=== PATIENT | female | born 1960 | race Caucasian/White ===

== ENCOUNTER 2016-11-01 16:32 | Emergency (ER) | payer BC ==
[2016-11-01 17:37] VITALS: BP 112/72
--- NOTE | 2016-11-01 19:15 | UC ---
Abdominal Pain Female HPI - HPI Summary HPI Summary: 3 DAYS OF DIFFUSE ABDOMINAL PAIN AND LOW BACK PAIN. HAS SUBJECTIVE FEVER AND CHILLS. FEELS FATIGUED, BLOATED. NO COUGH, ST OR EAR PAIN. NO URINARY SX. - History of Current Complaint Chief Complaint: UCAbdominalPain Stated Complaint: ABDOMINAL PAIN, BACK PAIN, AND NAUSEA Time Seen by Provider: 11/01/16 18:15 Hx Obtained From: Patient Onset/Duration: Gradual Onset, Lasting Days, Still Present Timing: Constant Severity Initially: Moderate Severity Currently: Moderate Pain Intensity: 4 Pain Scale Used: 0-10 Numeric Location: Diffuse Radiates: Yes Radiates to: Back Character: Aching, Dull Aggravating Factor(s): Nothing Alleviating Factor(s): Nothing Associated Signs and Symptoms: Positive: Fever, Back Pain, Nausea. Negative: Constipation, Blood in Stool, Urinary Symptoms, Decreased Appetite, Vaginal Bleeding, Vaginal Discharge, Vomiting, Diarrhea Allergies/Adverse Reactions: Allergies Allergy/AdvReac Type Severity Reaction Status Date / Time Sulfa Drugs Allergy Mild Rash Verified 11/01/16 17:37 CARDIAC STRESS TEST DYE Allergy CHEST Uncoded 11/01/16 17:37 PAIN,INCREASED HR PMH/Surg Hx/FS Hx/Imm Hx - Additional Past Medical History Additional PMH: FACTOR V LEIDEN Endocrine History Of: Reports: Thyroid Disease - hypothyroid, Hypothyroidism Denies: Diabetes Cardiovascular History Of: Denies: Cardiac Disorders, Hypertension, Pacemaker/ICD Respiratory History Of: Denies: COPD, Asthma, Pneumonia, Pulmonary Embolism GI/ History Of: Denies: Ulcer, Gastrointestinal Bleed, Gall Bladder Disease, Renal Disease, Urosepsis Neurological History Of: Denies: TIA, Dementia, Seizures, Migraine Psychological History Of: Denies: Anxiety, Depression, Bipolar Disorder, Schizophrenia Cancer History Of: Denies: Lung Cancer, Breast Cancer - Surgical History Surgical History: Yes Surgery Procedure, Year, and Place: cholecystectomy, hysterectomy, x3 - Family History Known Family History: Positive: Hypertension Family History: FACTOR V LEIDEN, DVT - Social History Alcohol Use: None Substance Use Type: None Smoking Status (MU): Never Smoked Tobacco - Immunization History Most Recent Influenza Vaccination: 2014/2015 Review of Systems Constitutional: Fever, Chills, Fatigue Respiratory: Negative Cardiovascular: Negative Gastrointestinal: Abdominal Pain, Other - NAUSEA Genitourinary: Negative Musculoskeletal: Other: - LOW BACK PAIN All Other Systems Reviewed And Are Negative: Yes Physical Exam Triage Information Reviewed: Yes Appearance: Well-Appearing, No Pain Distress, Well-Nourished Vital Signs: Initial Vital Signs Temp 98.5 F 11/01/16 17:32 Pulse 78 11/01/16 17:32 Resp 20 11/01/16 17:32 BP 112/72 11/01/16 17:32 Pulse Ox 100 11/01/16 17:32 Vital Signs Reviewed: Yes Eyes: Positive: Conjunctiva Clear ENT: Positive: Hearing grossly normal, Pharynx normal, TMs normal Neck: Positive: Supple, Nontender, No Lymphadenopathy Respiratory Exam: Normal Cardiovascular Exam: Normal Abdomen Description: Positive: Soft, Distended - MILDLY, Guarding - VOLUNTARY, Other: - TTP DIFFUSELY. NEG PSOAS, NEG OBTURATOR. NO REBOUND OR RIGIDITY. Negative: CVA Tenderness (R), CVA Tenderness (L) Bowel Sounds: Positive: Present Musculoskeletal: Positive: No Edema Neurological: Positive: Alert Psychological: Positive: Age Appropriate Behavior Skin: Negative: rashes Diagnostics - Laboratory Diagnostic Studies Completed/Ordered: URINE DOP SP. GR. 1.015, 1+LEUKS Abd Pain Female Course/Dx - Differential Dx/Diagnosis Differential Diagnosis: Appendicitis, Constipation, Pancreatitis, Urinary Tract Infection, Other - VIRAL SYNDROME Provider Diagnoses: ACUTE ABD PAIN, NOS Discharge - Discharge Plan Condition: Stable Disposition: HOME Patient Education Materials: Viral Syndrome (ED), Abdominal Pain (ED) Referrals: Lore Flores PA [Primary Care Provider] - If Needed Additional Instructions: ABDOMINAL PAIN: There are many causes of abdominal pain. Pain can mean a serious problem requiring surgery (such as appendicitis), or an innocent problem which goes away on its own (such as a viral infection). Often, time must pass to determine the cause of pain. The physician does not feel that hospitalization is necessary, at present. Conditions may change, however, within the next 24 hours. Therefore, call the doctor or come back for re-examination if any problems occur, such as: 1) Pain which becomes more severe, steady, or becomes concentrated in one specific area. Also, pain which is more severe with movement or coughing. 2) Vomiting which persists or becomes more frequent. 3) Blood in the vomitus, urine, or bowel movements. Blood in the stool may have a tarry or black appearance. 4) Shaking chills or fever greater than 100 degrees F. 5) The abdomen becomes more distended or swollen. 6) Bowel movements cease. 7) Failure to improve as expected. OBSERVATION FOR APPENDICITIS: At this time, the abdominal pain does not seem to be appendicitis. Our next "test" will be passage of time. If you have early appendicitis, signs will appear to help us make the diagnosis. Most of the time, the pain goes away. In these cases, the pain is usually due to a virus in the lymph glands near the appendix, or due to an ovarian cyst or ovulation. Unless the pain is gone, you should come back for a recheck. This is usually done in 8 to 12 hours. Be sure you understand your follow-up instructions. GO TO THE ER IMMEDIATELY IF: (1) the pain becomes much more severe and sharply increases with movement or coughing, (2) vomiting becomes frequent, (3) there is blood in the vomit, urine, or bowel movements, (4) there are shaking chills or fever, or (5) the abdomen becomes more distended or swollen. VIRAL SYNDROME: The physician has diagnosed a viral infection. Viruses not only cause "colds," but can cause many different symptoms including generalized aching, fever, headache, cough, diarrhea, nausea, vomiting, and fatigue. The treatment, for the most part, is simply relief of symptoms. This means that antibiotics are usually not given. Rest, fluids, pain medications and, occasionally, medication for the specific symptoms that are most bothersome will be prescribed. Contact the physician if you develop any new or unusual symptoms such as severe headache, stiff neck, high fever, chest pain, productive cough, or shortness of breath. You should be rechecked if you don't see marked improvement within seven to 10 days. GO TO THE ER WITHOUT FAIL IF YOUR SYMPTOMS WORSEN. OTHERWISE FOLLOW-UP WITH YOUR PCP FOR AN OUTPATIENT EVALUATION IF YOUR SYMPTOMS ARE PERSISTENT.
== END 2016-11-01 18:49 | disposition home or self-care (01) ==
LOC: UCEAST 16:32
DX: R10.0 Acute abdomen (principal); M54.5 Low back pain; Z88.2 Allergy status to sulfonamides; Z90.49 Acquired absence of other specified parts of digestive tract
CPT/HCPCS: 87086; 99211; G0463

== ENCOUNTER 2017-10-09 19:37 | Emergency (ER) | payer BC ==
[2017-10-10 00:19] VITALS: BP 125/79
--- NOTE | 2017-10-10 00:55 | ED ---
Lower Extremity - HPI Summary HPI Summary: Patient is a 57-year-old female with a history of factor V Leiden who presents [facility] the ED from [facility] with a chief complaint of left lateral calf swelling and tenderness which radiates up to the lateral thigh which has been present for approximately 4 days. She endorses working out more frequently, but states since she came down with the flu last week she has not been working out regularly. Due to her condition she makes sure she is ambulating once per hour. Denies any recent travel, smoking, or oral contraceptive use. She does not have a history of muscle strains or pains, but has bilateral varicose veins. Denies any chest pain, shortness of breath, fevers, sweats, chills. She has since improved from the influenza. She denies any weakness, numbness, tingling, color or temperature changes to the area. - History of Current Complaint Chief Complaint: EDExtremityLower Stated Complaint: POSS BLOOD CLOT IN LT LEG Time Seen by Provider: 10/09/17 22:20 Hx Obtained From: Patient Onset of Pain: Days Onset/Duration: Days Severity Initially: Mild Severity Currently: Mild Pain Intensity: 1 Pain Scale Used: 0-10 Numeric Timing: Constant Location: Is Discrete @ - Left lateral lower leg Character Of Pain: Aching Associated Signs And Symptoms: Negative: Swelling, Redness, Bruising, Fever, Weakness, Dizziness, Syncope, Abdominal Pain, Knee Pain Aggravating Factor(s): Standing, Ambulation Alleviating Factor(s): Rest Able to Bear Weight: Yes - Risk Factors Gout Risk Factors: Negative DVT Risk Factors: Other: - Factor V Leiden deficiency Septic Arthritis Risk Factor: Negative - Allergies/Home Medications Allergies/Adverse Reactions: Allergies Allergy/AdvReac Type Severity Reaction Status Date / Time Sulfa (Sulfonamide Allergy Rash Verified 10/09/17 19:41 Antibiotics) CARDIAC STRESS TEST DYE Allergy CHEST Uncoded 11/01/16 17:37 PAIN,INCREASED HR PMH/Surg Hx/FS Hx/Imm Hx Previously Healthy: Yes Endocrine/Hematology History: Reports: Hx Thyroid Disease - hypothyroid Denies: Hx Diabetes, Hx Anemia Cardiovascular History: Denies: Hx Hypertension, Hx Pacemaker/ICD Respiratory History: Denies: Hx Asthma, Hx Bronchopulmonary Dysplasia, Hx Chronic Bronchitis, Hx Chronic Obstructive Pulmonary Disease (COPD), Hx Cystic Fibrosis, Hx Lung Cancer , Hx Pleural Effusion, Hx Pneumonia, Hx Pulmonary Edema, Hx Pulmonary Embolism, Hx Seasonal Allergies, Hx Sleep Apnea, Other Respiratory Problems/Disorders GI History: Denies: Hx Cirrhosis, Hx Crohn's Disease, Hx Diverticulosis, Hx Gall Bladder Disease, Hx Gastroesophageal Reflux Disease, Hx Gastrointestinal Bleed, Hx Hiatal Hernia, Hx Irritable Bowel, Hx Jaundice, Hx Obstructive Bowel, Hx Ileostomy, Hx Pyloric Stenosis, Hx Ulcer, Hx Urosepsis, Other GI Disorders History: Denies: Hx Renal Disease Musculoskeletal History: Denies: Hx Arthritis, Hx Rheumatoid Arthritis, Hx Back Problems, Hx Bursitis , Hx Congenital Bone Abnormalities, Hx Fibromyalgia, Hx Gout, Hx Orthopedic Injury, Hx Osteoporosis, Hx Scoliosis, Hx Tendonitis, Other Musculoskeletal History Sensory History: Denies: Hx Hearing Aid Neurological History: Denies: Hx CVA, Hx Dementia, Hx Developmental Delay, Hx Headaches, Hx Migraine, Hx Nerve Disease, Hx Peripheral Neuropathy, Hx Seizures, Hx Spinal Cord Injury, Hx Transient Ischemic Attacks (TIA), Other Neuro Impairments/ Disorders Psychiatric History: Denies: Hx Anxiety, Hx Attention Deficit Hyperactivity Disorder, Hx Autism, Hx Eating Disorder, Hx Oppositional [place] Disorder, Hx Depression, Hx Panic Disorder, Hx Post Traumatic Stress Disorder, Hx Inpatient Treatment, Hx Community Mental Health Tx, Hx Schizophrenia, Hx Bipolar Disorder, Hx Suicide Attempt, Hx of Violent Episodes Against Others, Hx Substance Abuse, Other Psychiatric Issues/Disorders - Cancer History Hx Chemotherapy: No Hx Radiation Therapy: No - Surgical History Surgery Procedure, Year, and Place: cholecystectomy, hysterectomy, x3 - Immunization History Date of Tetanus Vaccine: Unk Date of Influenza Vaccine: Fall 2014 Hx Pertussis Vaccination: No Immunizations Up to Date: Unable to Obtain/Confirm Infectious Disease History: No Infectious Disease History: Denies: Hx Hepatitis, Hx Human Immunodeficiency Virus (HIV), History Other Infectious Disease, Traveled Outside the [place] in Last 30 Days - Family History Known Family History: Positive: Hypertension Family History: FACTOR V LEIDEN, DVT - Social History Occupation: Employed Full-time Lives: With Family Alcohol Use: None Hx Substance Use: No Substance Use Type: Reports: None Hx Tobacco Use: No Smoking Status (MU): Never Smoked Tobacco Review of Systems Constitutional: Negative Negative: Fever, Chills, Fatigue, Skin Diaphoresis Eyes: Negative Cardiovascular: Negative Respiratory: Negative Positive: Abdominal Pain Positive: no symptoms reported, see HPI Positive: Myalgia Negative: Rash, Bruising Neurological: Negative All Other Systems Reviewed And Are Negative: Yes Physical Exam Triage Information Reviewed: Yes Vital Signs On Initial Exam: Initial Vitals Temp Pulse Resp BP Pulse Ox 98.1 F 81 20 126/70 98 10/09/17 19:39 10/09/17 19:39 10/09/17 19:39 10/09/17 19:39 10/09/17 19:39 Vital Signs Reviewed: Yes Appearance: Positive: Well-Appearing, Well-Nourished Skin: Positive: Warm, Skin Color Reflects Adequate Perfusion Head/Face: Positive: Normal Head/Face Inspection Eyes: Positive: EOMI, HERIBERTO, Conjunctiva Clear Respiratory/Lung Sounds: Positive: Clear to Auscultation, Breath Sounds Present Cardiovascular: Positive: Normal, RRR, Pulses are Symmetrical in both Upper and Lower Extremities Musculoskeletal: Positive: Normal, Strength/ROM Intact Neurological: Positive: Speech Normal Psychiatric: Positive: Normal, Affect/Mood Appropriate Diagnostics - Vital Signs Vital Signs Temp Pulse Resp BP Pulse Ox 10/10/17 00:18 97.6 F 68 16 125/79 96 10/09/17 19:39 98.1 F 81 20 126/70 98 - Laboratory Lab Statement: Any lab studies that have been ordered have been reviewed, and results considered in the medical decision making process. Lower Extremity Course/Dx - Course Course Of Treatment: During the course of treatment the patient is evaluated for left lower extremity DVT versus other pathology. 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 Discussed with patient the possibilities for her muscle pain. I did not observe there to be any significant swelling, erythema, or warmth indicating a DVT or superficial thrombophlebitis. There does not seem to be any thrombosis from her varicose veins. I have advised she take magnesium glycinate 400 mg at bedtime for any tightening symptoms to which she has been feeling for the last several days. She is also to use a moist heat pad to the leg for any tightness. She will follow-up with her primary care doctor and Dr. Soliz who follows her for factor V Leiden. She is okay with plan to discharge and voices no concerns at this time. - Diagnoses Differential Diagnosis/HQI/PQRI: Positive: Other - DVT, superficial thrombophlebitis, thrombosis, varicose veins, muscle strain, muscle pain, restless leg Provider Diagnoses: Cramps of left lower extremity Discharge - Discharge Plan Condition: Stable Disposition: HOME Patient Education Materials: Leg Cramps (ED) Referrals: Ruba Walker NP [Primary Care Provider] - Additional Instructions: Magnesium glycinate 400 mg once daily at bedtime This helps with any restless leg or muscle spasms Moist heat to the calf if you feel it tightening Ibuprofen 6 her milligrams 3 times daily Try to avoid overuse of the leg at this time Please follow-up with your doctor as soon as possible
--- NOTE | 2017-10-10 07:22 | RAD ---
HISTORY: Leg pain COMPARISONS: December 14, 2016 TECHNIQUE: Multiple transverse and longitudinal ultrasound images were obtained of the left lower extremity from the level of the common femoral vein inferiorly through to the infrapopliteal veins using grayscale, color Doppler, and spectral Doppler imaging with and without compression and with augmentation. Comparison images were obtained of the contralateral common femoral vein. FINDINGS: VEINS: The venous system of the left lower extremity is compressible throughout its course, with normal flow on color Doppler imaging and normal response to augmentation on spectral Doppler imaging. SOFT TISSUES: Unremarkable. OTHER FINDINGS: None. IMPRESSION: NO LEFT LOWER EXTREMITY DEEP VEIN THROMBOSIS
== END 2017-10-10 00:19 | disposition home or self-care (01) ==
LOC: ED 19:37
DX: R25.2 Cramp and spasm (principal)
CPT/HCPCS: 99282

== ENCOUNTER 2017-12-11 11:29 | Emergency (ER) | payer BC ==
[2017-12-11 11:37] VITALS: BP 143/84
--- NOTE | 2017-12-11 12:29 | RAD ---
Indication: Right leg edema. Duplex Doppler sonography of the deep venous system of the right lower extremity deep venous system was performed. Bilaterally the common femoral veins appear patent and compressible. Right proximal greater saphenous vein, proximal deep femoral vein, femoral vein, popliteal vein, posterior tibial veins and peroneal veins appear patent and compressible. IMPRESSION: NO EVIDENCE OF DEEP VENOUS THROMBOSIS IS IDENTIFIED.
--- NOTE | 2017-12-11 17:15 | ED ---
Lower Extremity - HPI Summary HPI Summary: Patient is a 57-year-old female who presents emergency department for right Upper Leg Pain Times Several Days. Patient Does Not Recall Any Specific Falls or Injuries. Patient States the Pain Is Becoming More Constant. She Is Concerned Because She Is a History of Factor V Leiden. She States She Has Had a "Small" Clot in the past. She Denies Chest Pain or Shortness of Breath. Pain Is Worse with Ambulation. Has Taken Approximately No More Relief of Pain. Symptoms Are Mild in Severity. - History of Current Complaint Chief Complaint: EDExtremityLower Stated Complaint: RT CALF PAIN Time Seen by Provider: 12/11/17 13:26 Hx Obtained From: Patient Pain Intensity: 2 Pain Scale Used: 0-10 Numeric - Allergies/Home Medications Allergies/Adverse Reactions: Allergies Allergy/AdvReac Type Severity Reaction Status Date / Time Sulfa (Sulfonamide Allergy Rash Verified 12/11/17 11:37 Antibiotics) CARDIAC STRESS TEST DYE Allergy CHEST Uncoded 12/11/17 11:37 PAIN,INCREASED HR Home Medications: Home Medications Levothyroxine TAB* [Synthroid TAB*] 50 mcg PO DAILY 12/11/17 [History Confirmed 12/11/17] PMH/Surg Hx/FS Hx/Imm Hx Previously Healthy: Yes Endocrine/Hematology History: Reports: Hx Thyroid Disease - hypothyroid Denies: Hx Diabetes, Hx Anemia Cardiovascular History: Denies: Hx Hypertension, Hx Pacemaker/ICD Respiratory History: Denies: Hx Asthma, Hx Bronchopulmonary Dysplasia, Hx Chronic Bronchitis, Hx Chronic Obstructive Pulmonary Disease (COPD), Hx Cystic Fibrosis, Hx Lung Cancer , Hx Pleural Effusion, Hx Pneumonia, Hx Pulmonary Edema, Hx Pulmonary Embolism, Hx Seasonal Allergies, Hx Sleep Apnea, Other Respiratory Problems/Disorders GI History: Denies: Hx Cirrhosis, Hx Crohn's Disease, Hx Diverticulosis, Hx Gall Bladder Disease, Hx Gastroesophageal Reflux Disease, Hx Gastrointestinal Bleed, Hx Hiatal Hernia, Hx Irritable Bowel, Hx Jaundice, Hx Obstructive Bowel, Hx Ileostomy, Hx Pyloric Stenosis, Hx Ulcer, Hx Urosepsis, Other GI Disorders History: Denies: Hx Renal Disease Musculoskeletal History: Denies: Hx Arthritis, Hx Rheumatoid Arthritis, Hx Back Problems, Hx Bursitis , Hx Congenital Bone Abnormalities, Hx Fibromyalgia, Hx Gout, Hx Orthopedic Injury, Hx Osteoporosis, Hx Scoliosis, Hx Tendonitis, Other Musculoskeletal History Sensory History: Denies: Hx Hearing Aid Neurological History: Denies: Hx CVA, Hx Dementia, Hx Developmental Delay, Hx Headaches, Hx Migraine, Hx Nerve Disease, Hx Peripheral Neuropathy, Hx Seizures, Hx Spinal Cord Injury, Hx Transient Ischemic Attacks (TIA), Other Neuro Impairments/ Disorders Psychiatric History: Denies: Hx Anxiety, Hx Attention Deficit Hyperactivity Disorder, Hx Autism, Hx Eating Disorder, Hx Oppositional [place] Disorder, Hx Depression, Hx Panic Disorder, Hx Post Traumatic Stress Disorder, Hx Inpatient Treatment, Hx Community Mental Health Tx, Hx Schizophrenia, Hx Bipolar Disorder, Hx Suicide Attempt, Hx of Violent Episodes Against Others, Hx Substance Abuse, Other Psychiatric Issues/Disorders - Cancer History Hx Chemotherapy: No Hx Radiation Therapy: No - Surgical History Surgery Procedure, Year, and Place: cholecystectomy, hysterectomy, x3 - Immunization History Date of Tetanus Vaccine: Unk Date of Influenza Vaccine: Fall 2014 Infectious Disease History: No Infectious Disease History: Denies: Hx Hepatitis, Hx Human Immunodeficiency Virus (HIV), History Other Infectious Disease, Traveled Outside the [place] in Last 30 Days - Family History Known Family History: Positive: Hypertension Family History: FACTOR V LEIDEN, DVT - Social History Occupation: Employed Full-time Alcohol Use: None Hx Substance Use: No Substance Use Type: Reports: None Hx Tobacco Use: No Smoking Status (MU): Never Smoked Tobacco Review of Systems Constitutional: Negative Respiratory: Negative Gastrointestinal: Negative Positive: Other - pain to right calf and posterior thigh. Positive: Headache. Negative: Weakness, Paresthesia, Numbness All Other Systems Reviewed And Are Negative: Yes Physical Exam Triage Information Reviewed: Yes Vital Signs On Initial Exam: Initial Vitals Temp Pulse Resp BP Pulse Ox 98.0 F 67 15 143/84 100 12/11/17 11:34 12/11/17 11:34 12/11/17 11:34 12/11/17 11:34 12/11/17 11:34 Vital Signs Reviewed: Yes Appearance: Positive: Well-Appearing - Patient sitting outside of it no acute distress. Pleasant. Head/Face: Positive: Normal Head/Face Inspection Eyes: Positive: Normal Musculoskeletal: Positive: Normal, Other - Good palpable pedal pulse. Varicose veins noted. Mild pain to the right calf and brandt with flexion foot. No erythema, wounds, pitting edema. Neurological: Positive: Normal, CN Intact II-III Diagnostics - Vital Signs Vital Signs Temp Pulse Resp BP Pulse Ox 12/11/17 11:34 98.0 F 67 15 143/84 100 - Laboratory Lab Statement: Any lab studies that have been ordered have been reviewed, and results considered in the medical decision making process. Lower Extremity Course/Dx - Course Course Of Treatment: Patient presenting to the ER for right posterior leg pain. Venous duplex is negative for DVT or acute findings, reading per radiology. Suspect muscle strain. Advised Tylenol or Motrin for discomfort. To ice and elevate. Follow-up with PCP. Patient understands and agrees with plan. - Diagnoses Differential Diagnosis/HQI/PQRI: Positive: DVT, Sciatica, Sprain, Strain Provider Diagnoses: Muscle strain Discharge - Sign-Out/Discharge Documenting (check all that apply): Discharge/Admit/Transfer - Discharge Plan Condition: Good Disposition: HOME Patient Education Materials: Muscle Strain (ED) Referrals: Ruba Walker NP [Primary Care Provider] - Additional Instructions: Follow up with your PCP Tylenol or Motrin for pain as directed Ice and elevate Return to ER if symptoms change or worsen - Billing Disposition and Condition Condition: GOOD Disposition: HOME
== END 2017-12-11 13:55 | disposition home or self-care (01) ==
LOC: ED 11:29
DX: S76.911A Strain of unspecified muscles, fascia and tendons at thigh level, right thigh, initial encounter (principal); X58.XXXA Exposure to other specified factors, initial encounter; Y92.9 Unspecified place or not applicable; Z88.2 Allergy status to sulfonamides
CPT/HCPCS: 99282

== ENCOUNTER 2018-01-25 09:15 | Inpatient (IN) | payer BC ==
--- NOTE | 2018-01-22 07:07 | HP ---
HISTORY AND PHYSICAL: DATE OF SURGERY: 02/22/18 DATE OF OFFICE VISIT: 01/17/18 SURGEON: Ema Kay MD * (DICTATED BY KRAIG AHUJA) PROCEDURE: Right total knee arthroplasty CHIEF COMPLAINT: Right knee pain. HISTORY OF PRESENT ILLNESS: Ms. Grey is a 57-year-old female with continued complaints of right knee pain. She has failed conservative management and elected to proceed with a right knee arthroplasty. Radiographs show advanced arthritic changes of her medial and patellofemoral compartments. . PAST MEDICAL HISTORY: 1. Factor V Leiden disorder. 2. Hypothyroidism. PAST SURGICAL HISTORY: 1. x3. 2. Cholecystectomy. 3. Hysterectomy. 4. Vein ablation, right lower extremity. CURRENT MEDICATIONS: 1. Zoloft 25 mg daily. 2. Aspirin 81 mg daily. 3. Levothyroxine 50 mcg daily. ALLERGIES: To SULFA, CONTRAST DYE, and AMOXICILLIN. FAMILY HISTORY: Coronary artery disease, hypertension, factor V Leiden. SOCIAL HISTORY: She is a 57-year-old female, she lives with her . She does not smoke, use drugs or alcohol. REVIEW OF SYSTEMS: A complete 14-point review of systems is reviewed with the patient. Review of systems is positive for hypothyroidism, factor V Leiden disorder. She denies history of hepatitis, HIV, or anesthesia problems. PHYSICAL EXAMINATION GENERAL: She is a well developed, well nourished, in no acute distress. VITAL SIGNS: She stands 64 inches tall, weighs 187 pounds. Her blood pressure is 126/84, heart rate 76. HEENT: Normocephalic, atraumatic. NECK: Supple. No palpable lymph nodes. PULMONARY: The lungs are clear to auscultation bilaterally. CARDIO: Regular rate and rhythm. Strong S1, S2. ABDOMEN: Soft, nontender, nondistended. NEUROLOGICAL: She is alert and oriented x3. Cranial nerves II through XII are intact. MUSCULOSKELETAL: Right lower extremity, the skin is intact. There are no open wounds or abrasions. There is a mild to moderate joint effusion. She has some tenderness over the medial joint line. She has positive Christine's. 2+ dorsalis pedis pulses. She has intact sensation in her lower extremities. Muscle group strengths are intact at 5/5. Range of motion at the knee is 5-125 with pain and patellofemoral crepitus. ASSESSMENT AND PLAN: Ms. Grey is a 57-year-old female with complaints of right knee pain and MRI confirms a medial meniscus tear as well as full thickness loss of cartilage in the medial and patellofemoral compartments. She has elected to proceed with right total knee arthroplasty. Her surgery is scheduled for 02/22/[address] Kay discussed the risks and benefits of the surgery at today's visit and all of her questions were answered. Due to her history of factor V Leiden disorder, postoperatively she will be placed on coumadin with a lovenox bridge. She will follow up with Dr. Kay 2 weeks after the surgery. KRAIG AHUJA [id number]/[facility] #: [id number] MTDVenice
--- NOTE | 2018-01-23 10:12 | HP ---
AMENDED REPORT NOW INCLUDES COSIGNER DESIGNATION HISTORY AND PHYSICAL: DATE OF SURGERY: 02/22/18 DATE OF OFFICE VISIT: 01/17/18 SURGEON: Ema Kay MD.* (DICTATED BY KRAIG AHUJA) PROCEDURE: Right total knee arthroplasty. CHIEF COMPLAINT: Right knee pain. HISTORY OF PRESENT ILLNESS: Ms. Grey is a 57-year-old female with continued complaints of right knee pain. She has failed conservative management and elected to proceed with a right total knee arthroplasty, which is scheduled in February with Dr. Kay. PAST MEDICAL HISTORY: 1. Factor V Leiden disorder. 2. Hypothyroidism. PAST SURGICAL HISTORY: 1. x3. 2. Cholecystectomy. 3. Hysterectomy. 4. Vein ablation, right lower extremity. CURRENT MEDICATIONS: 1. Zoloft 25 mg daily. 2. Aspirin 81 mg daily. 3. Levothyroxine 50 mcg daily. ALLERGIES: SULFA, CONTRAST DYE, and AMOXICILLIN. FAMILY HISTORY: Coronary artery disease, hypertension, factor V Leiden. SOCIAL HISTORY: She is a 57-year-old female. She lives with her . She does not smoke, use drugs or alcohol. REVIEW OF SYSTEMS: A complete 14-point review of systems was reviewed with the patient. It was positive for hypothyroidism and factor V Leiden disorder. She denies history of DVT, PE, hepatitis, or HIV. PHYSICAL EXAMINATION GENERAL: She is well developed, well nourished, in no acute distress. VITAL SIGNS: She stands 5 feet 4 inches tall, weighs 187 pounds. Her blood pressure is 126/84 and heart rate is 76. HEENT: Normocephalic, atraumatic. NECK: Supple. No palpable lymph nodes. PULMONARY: The lungs are clear to auscultation bilaterally. CARDIO: Regular rate and rhythm. Strong S1 and S2. ABDOMEN: Soft, nontender, and nondistended. MUSCULOSKELETAL: Right lower extremity, the skin is intact. There are no open wounds or abrasions. She has a moderate joint effusion. There is some tenderness over the medial and lateral joint line. Positive Christine. 5 to 125 degrees of flexion with patellofemoral crepitus. 2+ dorsalis pedis pulses. Intact sensation in her lower extremity. Muscle group strengths are intact at 5/5. ASSESSMENT AND PLAN: Ms. Grey is a 57-year-old female with advanced arthritis of her right knee. She has failed conservative management and elected to proceed with a right total knee arthroplasty, which is scheduled for [address] Kay discussed the risks and benefits of the surgery on today's visit and all of her questions were answered. She will follow up with Dr. Kay in 2 weeks after the surgery. KRAIG AHUJA [id number]/[facility] #: [id number] MTDD
--- NOTE | 2018-11-27 18:06 | HP ---
HISTORY AND PHYSICAL: DATE OF ADMISSION/SURGERY: 12/06/18 DATE OF OFFICE VISIT: 11/26/18 SURGEON: Ema Kay MD * (DICTATED BY KRAIG AHUJA) PROCEDURE: Left total knee arthroplasty. CHIEF COMPLAINT: Left knee pain. HISTORY OF PRESENT ILLNESS: Ms. Grey is a 58-year-old female with continued complaints of left knee pain. She has failed conservative treatment and elected to proceed with a left total knee arthroplasty. PAST MEDICAL HISTORY: Hypothyroidism, factor V Leiden disorder, and history of a DVT. PAST SURGICAL HISTORY: x3, cholecystectomy, and hysterectomy. CURRENT MEDICATIONS: 1. Levothyroxine 50 mcg a day. 2. Zoloft 25 mg daily. 3. Furosemide 20 mg a day. 4. Tylenol as needed. ALLERGIES: To SULFA ANTIBIOTICS, IV DYE, AMOXICILLIN, and ADHESIVE TAPE. FAMILY HISTORY: Factor V Leiden and coronary artery disease. SOCIAL HISTORY: She is a 58-year-old female. She lives with her . She does not smoke or use drugs. Uses occasional alcohol. REVIEW OF SYSTEMS: A complete 14-point review of systems was reviewed with the patient. It was positive for history of a DVT and factor V Leiden disorder as well as hypothyroidism. She denies history of anesthesia problems, hepatitis, or HIV. PHYSICAL EXAMINATION GENERAL: She is well developed, well nourished, in no acute distress. VITAL SIGNS: She stands 64 inches tall, weighs 190 pounds. Her blood pressure is 140/90, heart rate 76. HEENT: Normocephalic, atraumatic. NECK: Supple. No palpable lymph nodes. PULMONARY: The lungs are clear to auscultation bilaterally. CARDIO: Regular rate and rhythm. Strong S1, S2. ABDOMEN: Soft, nontender, nondistended. NEUROLOGICAL: She is alert and oriented x3. MUSCULOSKELETAL: Left lower extremity, the skin is intact. There are no open wounds or abrasions. There is [id number] effusion of the left knee. She has some tenderness along the medial and lateral joint line. Range of motion is 10 to 150 degrees of flexion. She has 2+ dorsalis pedis pulse. Intact sensation. She is able to dorsiflex and plantar flex. ASSESSMENT AND PLAN: Ms. Grey is a 58-year-old female with end-stage osteoarthritis of the left knee. She has failed conservative treatment and elected to proceed with a left total knee arthroplasty. The surgery is scheduled for 12/06/[address] Kay discussed the risks and benefits of the surgery at today's visit and all of her questions were answered. She will follow up with Dr. Kay 2 weeks after the surgery. No TXA will be used on this patient because of her history of DVT and factor V Leiden disorder. KRAIG AHUJA [id number]/[facility] #: [id number] [place]TD[place]
[2018-12-05] MEDS ORDERED: Buffered Lidocaine 1% SYRIN* 1 ML/SYRINGE INTRADERM ONE (11:49)
[2018-12-06] MEDS ORDERED: Lactated Ringers 1000 ML Bag* 1,000 ML IV SCH (06:00)
--- OUTSIDE RECORDS SUMMARY | 2018-12-06 10:11 | XMS REPORT | Continuity of Care Document ---
:1960 External Reference #:[id number] Author Name Faye Hatfield Care Team Providers Name Role Phone Jakob Johnson MD Primary Care Physician Unavailable Payers Date Identification Numbers Payment Provider Subscriber Effective: 2015 Policy Number: [id number] [employer] Radha Grey PayID: [id number] [address] [address] KAYLYNN Smith [address] Effective: 2013 Policy Number: [id number] [place] Radha Grey Expires: 2015 Group Name: [facility] [address] PayID: [id number] [place] [address] Effective: 2011 Policy Number: [id number] [employer] Radha Grey Expires: 2013 PayID: [id number] [address] [address] KAYLYNN Smith [address] Advance Directives Description No Information Available Problems [...] History Type Date Description Comments Sex Unknown Marital Status Lives With Family 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 ETOH Use Drinks Alcoholic Beverages Occasionally Tobacco Use Start: Unknown Patient has never smoked Recreational Drug Use Denies Drug Use Smoking Status Reviewed: 11/26/18 Patient has never smoked Exercise Type/Frequency Exercises sporadically housework Allergies, Adverse Reactions, Alerts Date Description Reaction Status Severity Comments 09/10/2013 Sulfa Antibiotics Urticaria Active 10/10/2016 IVP Dye Active 10/10/2016 Amoxicillin Contact dermatitis Active 10/10/2016 Adhesive Tape rash Active Medications Medication Date Status Form Strength Qnty SIG Indications Ordering Provider Levothyroxine Active Tablets 50mcg 90tab 1 po qd Unknown Sodium 00 s Zoloft Active Tablets 25mg 1 by Unknown 00 mouth every day Acetaminophen Active Tablets 325mg 2 every 4 Unknown 00 hours as needed for pain Lovenox 01/18/20 Hx Solution 40mg/0.4M 12ml sub [...] by 719.49 Anand GARCIA 14 - [facility], 06/23/20 twice a M.D. 15 [...] 00 - mouth 10/22/19 every day 16 Aspir-81 Hx Tablets 81mg 1 by Unknown 00 - DR mouth 11/24/19 every day 19 Zyrtec Allergy Hx Tablets 10mg 1 by Unknown 00 - mouth 01/17/20 every day 18 Naprosyn Hx Tablets 500mg take 1 by Unknown 00 - mouth 01/17/20 twice a 18 day Maxalt Hx Tablets 5mg take 1 Unknown 00 - tablet Unknown once, may repeat at 2hr intervals ; do not exceed 30mg in 24 hrs. Furosemide Hx Tablets 20mg 1 by Unknown 00 - mouth 09/18/19 every day 19 Meloxicam Hx Tablets 15mg 1 by Unknown 00 - mouth 11/24/19 every day 19 Medications Administered in Office Medication Date Status Form Strength Qnty SIG Indications Ordering Provider Synvisc Or Administered Injection Ema Synvisc-Manuela Kay M.D. Injection 1 MG Synvisc Or Administered Injection Ema Synvisc-Manuela Kay M.D. Injection 1 MG Depomedrol Administered Injection Ema 40MG Siria Kay M.D. Depomedrol Administered Injection Ema 40MG Siria Kay M.D. Depomedrol Administered Injection Ema 40MG Mu Kay M.D. Immunizations Description No Information Available Vital Signs Date Vital Result Comment 11/26/2018 10:10am Height 64 inches 5'4" Weight 190.75 lb Heart Rate 76 /min BP Systolic 140 mmHg BP Diastolic 90 mmHg Respiratory Rate 16 /min Pain Level 2 BMI (Body Mass Index) 32.7 kg/m2 11/22/2018 12:54pm Height 64 inches 5'4" Weight 189.00 lb Heart Rate 72 /min BP Systolic Sitting 132 mmHg lue large cuff BP Diastolic Sitting 80 mmHg lue large cuff BP Systolic Standing 128 mmHg lue large cuff BP Diastolic Standing 80 mmHg lue large cuff Respiratory Rate 16 /min BMI (Body Mass Index) 32.4 kg/m2 Ejection Fraction 50-55% echo. 09/06/18 11/05/2018 7:59am Height 64 inches 5'4" Weight 186.00 lb BP Systolic 124 mmHg BP Diastolic 74 mmHg Body Temperature 98.1 F Pain Level 3 BMI (Body Mass Index) 31.9 kg/m2 10/29/2018 2:26pm Height 64 inches 5'4" Weight 184.00 lb BP Systolic 124 mmHg BP Diastolic 83 mmHg Respiratory Rate 17 /min Pain Level 4 BMI (Body Mass Index) 31.6 kg/m2 10/09/2018 8:52am Height 64 inches 5'4" Weight 188.00 lb w/o shoes Heart Rate 64 /min BP Systolic 135 mmHg Lue BP Diastolic 90 mmHg Lue BP Systolic Sitting 130 mmHg Rue BP Diastolic Sitting 95 mmHg Rue BP Systolic Standing 125 mmHg Rue BP Diastolic Standing 95 mmHg Rue Respiratory Rate 17 /min BMI (Body Mass Index) 32.3 kg/m2 Ejection Fraction 50-55% 09/06/18 echo cmc 10/05/2018 3:15pm Height 64 inches 5'4" Weight 185.00 lb BP Systolic 119 mmHg BP Diastolic 74 mmHg Respiratory Rate 15 /min Pain Level 6 BMI (Body Mass Index) 31.8 kg/m2 09/19/2018 9:07am Height 64 inches 5'4" Weight [...] test for the detection of antibodies 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 3 -- REFERENCE VALUE -- Not Applicable 4 RESULT: HLA-B27 antigen was not detected. Method: Flow Cytometry Test Performed by: [place] [address] Supervisor Dock: Joe Joseph III, M.D. 5 Test Performed by: [place] [address] Supervisor Dock: Joe Joseph III, M.D. 6 -- REFERENCE VALUE -- <20.0 (Negative) Test Performed by: [place] [address] Supervisor Dock: Joe Joseph III, M.D. 7 -- REFERENCE VALUE -- 10.3 - 12.8 8 No evidence of a lupus-like anticoagulant based on results of Prothrombin Time (PT), Activated Partial Thromboplastin Time (APTT), and Dilute Russells Viper Venom Time (DRVVT). Interpretation not reviewed by physician. Test Performed by: [place] [address] Supervisor Dock: Joe Joseph III, M.D. 9 If thyroglobulin [...] cannot be used interchangeably. Test Performed by: [place] [id number] Supervisor Dock: Joe Joseph III, M.D. 10 -- REFERENCE VALUE -- <10.0 (Negative) 11 -- REFERENCE VALUE -- <10.0 (Negative) 12 -- REFERENCE VALUE -- <10.0 (Negative) Test Performed by: [address] [address] Supervisor Dock: Joe Joseph III, M.D. 13 Test Performed by: [place] [address] Supervisor Dock: Joe Joseph III, M.D. Procedures Date Code Description Status 11/26/2018 93035 Inject/Drain Joint/Bursa Major W/O US Completed 11/22/2018 40238 EKG Tracing & Interpretation Completed 11/05/2018 14686 Inject/Drain Joint/Bursa Major W/O US Completed 10/29/2018 76000 Inject/Drain Joint/Bursa Major W/O US Completed 10/09/2018 36122 EKG Tracing & Interpretation Completed 09/19/2018 77696 Inject/Drain Joint/Bursa Major W/O US Completed 09/06/2018 27772 ECHO Transthorasic Realtime 2D W Doppler & Color Flow Completed Hosp 12/27/2017 12871 Inject/Drain Joint/Bursa Major W/O US Completed 09/26/2016 07938915 Mammogram Completed 02/01/2016 34260 ECHO Transthorasic Realtime 2D W Doppler & Color Flow Completed Hosp Encounters Type Date Location Provider Dx Diagnosis Office Visit 11/22/2018 [facility] Hunter Parikh Z01.810 Encounter for 1:00p Of DO KENDRA Henderson preprocedural cardiovascular examination Z86.718 Personal history of other venous thrombosis and embolism Office Visit 10/09/2018 9:00a [facility] Hunter Parikh R60.0 Localized edema Of Rena Ramirez DO FACC Office Visit 10/05/2018 3:00p Orthopedic Ema Kay, M25.561 Pain in right Services Of M.D. knee C.M.A. M25.562 Pain in left knee M25.462 Effusion, left knee M25.461 Effusion, right knee M17.0 Bilateral primary osteoarthritis of knee Office Visit 09/19/2018 8:30a [facility] Services Ema Rahul, M25.561 Pain in right Of Frieda Zhao knee M25.562 Pain in left knee M25.462 Effusion, left knee M25.461 Effusion, right knee M17.0 Bilateral primary osteoarthritis of knee Office Visit 01/17/2018 Orthopedic Ema M17.11 Unilateral primary 8:00a Services Of Pavel Kay osteoarthritis, right C.M.A. knee M25.461 Effusion, right knee M25.561 Pain in right knee S83.241A Oth tear of medial meniscus, current injury, r knee, init Office Visit 12/27/2017 Orthopedic Ema M17.11 Unilateral primary 9:00a Services Of Pavel Kay osteoarthritis, right C.M.A. knee M25.461 Effusion, right knee M25.561 Pain in right knee Office Visit 11/09/2017 1:15p Orthopedic Deepak F M79.662 Pain in left Services Of Frieda Harden MD lower leg S86.892A Inj oth musc/tend at lower leg level, left leg, init Office Visit 11/29/2016 1:00p Surgical Michelle Abdelrahman N64.52 [facility] Gorman MD Office Visit 10/23/2015 3:40p Sports Medicine Fnu Seemant, M25.512 Pain in left Of [facility] AT shoulder Thornton S46.812D Strain of musc/fasc/tend at shldr/up arm, [...] & Strains Lumbar Plan of Treatment Future Appointment(s):12/17/2018 8:15 am - Ema Kay M.D. at [facility]12/06/2018 2:00 pm - Bobby Phan PA-C at [facility].12/06/2018 2:00 pm - KRAIG Lezama at [facility].12/06/2018 2:00 pm - Ema Kay M.D. at [facility]11/26/2018 - Ema Kay M.D.M25.462 Effusion, left kneeFollow up:Follow up: 2 weeks after hvrhohyX25.562 Pain in left kneeM17.0 Bilateral primary osteoarthritis of knee
[2018-12-06] MEDS ORDERED: Buffered Lidocaine 1% SYRIN* 1 ML/SYRINGE INTRADERM ONE (10:21)
[2018-12-06] MEDS ORDERED: Clindamycin 900 MG IVPREMIX(* 900 MG/50 ML SDV IV ONE (10:21)
[2018-12-06] MEDS ORDERED: ROPIVACAINE 5 MG/ML 30 ML BTL (0.5%) ONE (12:15)
[2018-12-06] MEDS ORDERED: Bupivacaine 0.25% SDV* 30 ML ONE (12:37)
[2018-12-06] MEDS ORDERED: Midazolam* 1 MG/ML 5 ML VIAL (5 MG) ONE ×2 (12:43→13:24)
[2018-12-06] MEDS ORDERED: fentaNYL* 50 MCG/ML 2 ML VIAL (100 MCG VIAL) ONE (13:09)
[2018-12-06] MEDS ORDERED: Dexamethasone IV* 4 MG/ML 1 ML (4 MG) ONE (13:27)
[2018-12-06] MEDS ORDERED: Ketorolac INJ* 30 MG/ML 1 ML VIAL ONE (14:08)
[2018-12-06] MEDS ORDERED: Ondansetron INJ* 2 MG/ML VIAL ONE (14:08)
[2018-12-06] MEDS ORDERED: Naloxone* 0.4 MG/ML 1 ML VIAL IV PRN (14:43)
[2018-12-06] MEDS ORDERED: HYDROmorphone INJ1* 1 MG/ML SYRINGE IV PRN (14:43)
[2018-12-06] MEDS ORDERED: Scopolamine 1.5 mg* PATCH TRANSDERM PRN (14:43)
[2018-12-06] MEDS ORDERED: fentaNYL* 50 MCG/ML 2 ML VIAL (100 MCG VIAL) IV PRN (14:43)
[2018-12-06] MEDS ORDERED: Ondansetron INJ* 2 MG/ML VIAL IV PRN ×2 (14:43→15:25)
[2018-12-06] MEDS ORDERED: oxyCODONE/Acetamin 5/325 MG* TAB PO PRN ×2 (14:43→15:42)
[2018-12-06] MEDS ORDERED: DiMENhydriNATE IV* 50 MG/ML VIAL IV PUSH PRN (14:43)
[2018-12-06] MEDS ORDERED: Morphine INJ* 2 MG/ML 1 ML SYRINGE (TWO MG - NEW SYRINGE VERSION) IV PRN (15:25)
[2018-12-06] MEDS ORDERED: diPHENhydraMINE IV* 50 MG/ML 1 ml VIAL (BENADRYL) IV PRN (15:25)
[2018-12-06] MEDS ORDERED: Polyethylene Glycol 3350* 17 GM PACKET PO PRN (15:25)
[2018-12-06] MEDS ORDERED: diPHENhydraMINE PO* 25 MG PO PRN (15:25)
[2018-12-06] MEDS ORDERED: Magnesium Hydroxide LIQ* 30 ML UDC PO PRN (15:25)
[2018-12-06] MEDS ORDERED: traMADol TAB* 50 MG PO PRN (15:25)
[2018-12-06] MEDS ORDERED: Cyclobenzaprine TAB* 10 MG PO PRN (15:25)
[2018-12-06] MEDS ORDERED: Bisacodyl SUPP* 10 MG SUPP PR PRN (15:25)
[2018-12-06] MEDS ORDERED: Acetaminophen TAB* 325 MG PO SCH (16:00)
[2018-12-06] MEDS: Lactated Ringers 1000 ML Bag* 1,000 ML IV SCH (17:00)
[2018-12-06] MEDS: oxyCODONE/Acetamin 5/325 MG* TAB PO PRN (17:31)
--- NOTE | 2018-12-06 17:52 | OP ---
Operative Report - Blank - Operative Report Date of Operation: 12/06/18 Note: ADRIANA MCKEON 1960 Date of Surgery: 12/06/18 Ema Kay MD Police Pilot: Carrie CORNELL did help throughout the procedure with preparation of the knee, wound retraction, manipulation of the knee, and wound closure. Anesthesiologist: Dr. Hudson Anesthesia Type: Spinal Preoperative Diagnosis: Left severe degenerative osteoarthritis of the knee Postoperative Diagnosis: As above Procedure Performed: Left Total Knee Arthroplasty Tourniquet time: 43 minutes Complications: None Specimen: Bone and cartilage from the left knee joint sent to pathology. Hardware Used: Cemented Kumar and Nephew total knee hardware was used - For the femur a size left 5 narrow legion posterior stabilized femoral component, for the tibia a size 3 left escobar II tibial baseplate, for the insert a size 9mm 3 -4 posterior stabilized articular polyethylene insert, and for the patella a size 32 3-peg all poly patella. Brief History/Indication: ADRIANA MCKEON was known in clinic and had a history of severe left knee pain and swelling. She failed conservative treatment with anti-inflammatories, pain pills, intra-articular injections and physical therapy. She elected to undergo left total knee arthroplasty due to continued pain and decreased quality of life. Radiographs showed severe end stage osteoarthritis of the knee with bone on bone contact. Informed consent was obtained from the patient. She understood the risks of surgery included but were not limited to: bleeding, infection, damage to nearby structures, intraoperative fracture, nerve palsy, failure of the hardware, early loosening, knee stiffness or loss of motion, anesthesia complications, stroke, heart attack , blood clot and . She wished to proceed. Intra-Operative Findings: Intraoperatively the patient was noted to have severe loss of cartilage in all 3 compartments of the knee. Description of the Procedure: ADRIANA MCKEON was identified in the preanesthesia unit. Her left knee was marked as the correct operative side. Informed consent was signed and placed in the chart. The patient was taken to the operating room and placed under anesthesia without complication. A lucas catheter was placed. A tourniquet was placed on the left thigh. The left lower extremity was prepped and draped in the usual sterile fashion. Preoperative time-out was made to correctly identify the patient, side and site. Appropriate intraoperative antibiotics were given within one hour of incision. Tourniquet was inflated. A midline incision was made and carried sharply down to the extensor mechanism. A new 10 blade was used to make a standard medial parapatellar arthrotomy. The patella was subluxed laterally. Electrocautery was used to dissect soft tissue off the superomedial tibia to the midsagittal plane. The knee was flexed up. The anterior horn of the lateral meniscus and the ACL were sharply incised. A drill was used to enter the distal femur. The intramedullary distal femoral cutting guide was pinned on the distal femur. The oscillating saw was used to make the distal femoral cut. The external rotation guide was pinned on the distal femur and the distal femur was sized to a size 5. The size 5 multi-cutting jig was pinned on the distal femur. The oscillating saw was used to make the appropriate 4 chamfer cuts. Next the PCL was completely released. The extramedullary tibial cutting guide was pinned on the proximal tibia and the oscillating saw was used to make the proximal tibial cut perpendicular to the mechanical axis of the tibia. The bone was carefully removed. The knee was brought out into full extension. The spacer block was placed and had excellent fit with the knee in full extension. The medial and lateral ligaments were well balanced. The flexion and extension gaps were well balanced. The knee was flexed up. Lamina patient accounts manager was placed both medially and laterally. Any remaining meniscus was removed with electrocautery. Curved osteotome was used to remove any posterior osteophytes. The tibial tray and drop lakesha were placed and confirmed a satisfactory tibial cut. The size 5 narrow left femoral trial was impacted onto the distal femur. This trial had excellent fit and stability. The box for the posterior stabilized implant was prepared using a box cut osteotome and a reamer. Next a tibial tray trial and 9 mm insert trial was placed. The knee was taken through a range of motion and had full extension to 130 degrees of flexion. Patellofemoral tracking was satisfactory. The patella was inverted and sized to a size 32. Three peg holes were drilled through the size 32 drill guide. The trial patella was placed and the knee was taken through a range of motion. There was satisfactory patellofemoral tracking. All trials were removed. The tibia was subluxed anteriorly and sized to a size 3. The proximal tibial was prepared with a size 3 keel punch. All bony cut surfaces were irrigated with sterile saline and dried. Final implants were cemented into place starting with the tibia, followed by the femur, and last the patella. A 9 mm insert trial was placed and the knee was brought into full extension. Tourniquet was turned down and the knee was copiously irrigated with sterile saline. Electrocautery was used to obtain meticulous hemostasis. Once the cement had fully cured, the insert trial was removed. Any excess cement was removed from around the hardware and capsule. Final insert chosen was a 9 mm posterior stabilized Escobar II articular insert size 3-4. Stability of the insert was checked and noted to be stable. The extensor mechanism was closed using number 1 vicryls. The rest of the incision was closed in a layered fashion using 0 and 2-0 vicryls. The skin was closed using 3-0 nylon suture. Sterile xeroform, 4x4s and webril were used to cover the incision. Damian wrap and cold pack were used to cover the dressings. The patients anesthesia was reversed without difficulty. She was taken to the PACU in stable condition. Intended weight-bearing will be as tolerated.
[2018-12-06] MEDS: Docusate CAP* 100 MG PO SCH (20:02)
[2018-12-06] MEDS: oxyCODONE TAB* 5 MG TAB PO PRN (20:02)
[2018-12-06] MEDS: Magnesium Hydroxide LIQ* 30 ML UDC PO SCH (20:03)
[2018-12-06] MEDS: Clindamycin 600 MG IVPREMIX(* 600 MG/50 ML SDV IV SCH (21:33)
[2018-12-06] MEDS: Acetaminophen TAB* 325 MG PO SCH (21:39)
[2018-12-06] MEDS ORDERED: Heparin VIAL(*) 5000 UNITS/ML VIAL (FIVE THOUSAND) SUBCUT ONE (22:00)
[2018-12-07] MEDS: oxyCODONE/Acetamin 5/325 MG* TAB PO PRN ×3 (01:11→10:56)
[2018-12-07] MEDS: Lactated Ringers 1000 ML Bag* 1,000 ML IV SCH (03:18)
[2018-12-07] MEDS: Clindamycin 600 MG IVPREMIX(* 600 MG/50 ML SDV IV SCH ×2 (05:24→13:49)
[2018-12-07] MEDS: Acetaminophen TAB* 325 MG PO SCH (05:28)
[2018-12-07] MEDS ORDERED: Levothyroxine TAB* 50 MCG TAB PO SCH (06:00)
[2018-12-07 06:46] LABS: Hematocrit 33 % (33-41); Hemoglobin 11.2 g/dL (12.0-16.0); Mean Platelet Volume 6.9 fL (7.4-10.4); Platelet Count 214 10^3/uL (150-450)
[2018-12-07 07:00] LABS: BUN/Creatinine Ratio 17.7 (8-20); Calcium 8.9 mg/dL (8.6-10.3); EGFR African American 118.8 (>60); EGFR Non-African American 98.2 (>60); Potassium 3.8 mmol/L (3.5-5.0)
[2018-12-07] MEDS: oxyCODONE TAB* 5 MG TAB PO PRN (07:37)
[2018-12-07] MEDS: Magnesium Hydroxide LIQ* 30 ML UDC PO SCH (07:37)
[2018-12-07] MEDS: Docusate CAP* 100 MG PO SCH (07:37)
[2018-12-07] MEDS ORDERED: Apixaban* 2.5 MG TAB PO SCH (09:00)
[2018-12-07] MEDS ORDERED: Furosemide TAB* 20 MG PO SCH (09:00)
[2018-12-07] MEDS ORDERED: Sertraline* 25 MG TAB PO SCH (09:00)
--- NOTE | 2018-12-07 10:56 | DS ---
Orthopedic Discharge Summary - Discharge Summary Date of Admission:12/06/18 Date of Discharge: 12/07/18 Date of Surgery: 12/06/18 Attending Orthopedic Provider: Dr. Kay Pre-operative Diagnosis: degenerative arthritis left knee Operative Procedure: Left total knee arthroplasty Condition of Patient: stable History: ADRIANA MCKEON is a 58 year old F with years of increasingly severe left knee pain. Patient has failed conservative management and has elected to undergo a left total knee replacement Hospital Course: ADRIANA was admitted to [facility] on 12/06/18. Patient underwent a left total knee without complication followed by a brief recovery in PACU and transfer to the Short Stay Surgical Unit in stable condition. Our hospitalist service, physical therapy and occupational therapy also participated in this patients care. Post-op day 1: patient was alert and in no acute distress. Dressing was clean, dry and intact. Operative extremity dorsiflexion and plantarflexion intact, sensation intact to light touch distally , DP2+. Her dressing was changed, incision was clean, dry and intact. Patient was deemed to be medically and orthopedically stable for discharge home. Physical therapy goals were met. Home Medications Medication Instructions Recorded Confirmed Type Sertraline* [Zoloft*] 25 mg PO DAILY 12/31/15 12/06/18 History Levothyroxine TAB* [Synthroid TAB*] 50 mcg PO QAM 12/11/17 12/06/18 History Acetaminophen [Tylenol Extra 2 tab PO ONCE PRN 11/26/18 12/06/18 History Strength] Furosemide TAB* [Lasix TAB*] 20 mg PO QAM 11/26/18 12/06/18 History Apixaban* [Eliquis*] 2.5 mg PO BID #60 tab 12/07/18 Rx Docusate CAP* [Colace Cap*] 100 mg PO BID cap 12/07/18 Rx oxyCODONE/Acetamin 5/325 MG* 1 - 2 tab PO Q4H PRN #56 tab MDD 8 12/07/18 Rx [Percocet 5/325 TAB*] Discharge home after PT this afternoon eliquis for 1 month post op Percocet for pain WBAT LLE follow up as scheduled with Dr. Kay in clinic
[2018-12-07 13:28] VITALS: BP 103/64
[2018-12-09] MEDS ORDERED: Scopolamine PATCH Remove* 1 NOTE MISC PATCH OFF ONE (14:43)
== END 2018-12-07 14:35 | disposition home health service (06) | DRG 302 ==
LOC: EDSTATUS 02-22 11:00 → AA 12-06 10:07 → SSU 12-06 16:48
PROVIDERS: ADMIT Orthopaedic Surgery Adult Reconstructive Orthopaedic Surgery; ATTEND Orthopaedic Surgery Adult Reconstructive Orthopaedic Surgery
PROC: 0SRD069 Replacement of Left Knee Joint with Oxidized Zirconium on Polyethylene Synthetic Substitute, Cemented, Open Approach (ICD-10-PCS; principal; 2018-12-06 13:00)
DX: M17.0 Bilateral primary osteoarthritis of knee (principal); D68.51 Activated protein C resistance; E03.9 Hypothyroidism, unspecified; M25.461 Effusion, right knee; M25.762 Osteophyte, left knee; M25.462 Effusion, left knee; E06.3 Autoimmune thyroiditis; F41.9 Anxiety disorder, unspecified; E78.5 Hyperlipidemia, unspecified; J30.2 Other seasonal allergic rhinitis; M47.816 Spondylosis without myelopathy or radiculopathy, lumbar region; Z90.49 Acquired absence of other specified parts of digestive tract; Z90.710 Acquired absence of both cervix and uterus; Z88.0 Allergy status to penicillin; Z88.2 Allergy status to sulfonamides; Z91.041 Radiographic dye allergy status; Z82.49 Family history of ischemic heart disease and other diseases of the circulatory system; Z83.2 Family history of diseases of the blood and blood-forming organs and certain disorders involving the immune mechanism; Z86.718 Personal history of other venous thrombosis and embolism; Z88.8 Allergy status to other drugs, medicaments and biological substances; Z80.2 Family history of malignant neoplasm of other respiratory and intrathoracic organs
CPT/HCPCS: 36415; 80048; 85014; 85018; 85049; 88305; A9270-GY; C1776; J1100; J1644; J1885; J2250; J2405; J2795; J3010; J3490

== ENCOUNTER 2018-08-15 17:54 | Emergency (ER) | payer BC ==
[2018-08-15 19:53] LABS: ABS Basophils 0.1 10^3/ul (0-0.2); ABS Eosinophils 0.1 10^3/ul (0-0.6); ABS Lymphocytes 2.5 10^3/ul (1.0-4.8); ABS Monocytes 0.3 10^3/ul (0-0.8); ABS Neutrophils 3.4 10^3/ul (1.5-7.7); ABS Nucleated RBC 0 10^3/ul; Eosinophil % 1.8 %; Hematocrit 41 % (35-47); Hemoglobin 14.1 g/dl (12.0-16.0); Lymphocyte % 38.7 %; Mean Corpuscular HGB Conc 34 g/dl (31-36); Mean Corpuscular Hemoglobin 30 pg (27-31); Mean Corpuscular Volume 86 fL (80-97); Mean Platelet Volume 6.9 fL (7.4-10.4); Nucleated Red Blood Cells % 0.1; Platelet Count 237 10^3/ul (150-450); Red Blood Count 4.76 10^6/ul (4.00-5.40); Red Cell Distribution Width 14 % (10.5-15); White Blood Count 6.4 10^3/ul (3.5-10.8)
[2018-08-15 20:03] LABS: Activated Partial Thrombo Time 29.1 seconds (26.0-36.3); INR 0.86 (0.77-1.02)
[2018-08-15 20:18] LABS: Albumin 4.1 g/dL (3.2-5.2); Albumin/Globulin Ratio 1.5 (1-3); BUN/Creatinine Ratio 19.2 (8-20); C Reactive Protein 4.43 mg/L (<8.01); Calcium 9.5 mg/dL (8.6-10.3); EGFR Non-African American 54.1 (>60); Globulin 2.8 g/dL (2-4); Potassium 4.3 mmol/L (3.5-5.0); Total Bilirubin 0.3 mg/dL (0.2-1.0); Total Protein 6.9 g/dL (6.4-8.9)
--- NOTE | 2018-08-15 20:25 | ED ---
Lower Extremity - HPI Summary HPI Summary: A 58 y/o female presents to [facility] with a chief complaint of right leg swelling since 08/07/18. At triage she rated her pain as 0/10. She claims that both of her legs have pain and swelling but her right is worse than her left. On she saw her PA who ordered labs and the d-dimer was elevated in their lab. She also c/o left groin pain near the pubis and abdominal pain. She denies fever. She is not on blood thinners. She has a SHx of a graft in the right femoral vein by Dr. Garcia, 3 C-sections, hysterectomy, breast biopsy, cholecystectomy. Pt has history of diverticulitis, but no abscess or perforation. Pt is able to eat, is not nauseous or vomiting. She admits to having chest heaviness. She has a PMHx and a FHx of factor V Lieden. - History of Current Complaint Chief Complaint: EDGeneral Stated Complaint: RT LEG SWOLLEN Time Seen by Provider: 08/15/18 19:41 Hx Obtained From: Patient Mechanism Of Injury: Other - none Onset of Pain: Days, Prior to Arrival Onset/Duration: Days Severity Initially: Mild Severity Currently: Mild Pain Intensity: 0 Pain Scale Used: 0-10 Numeric Timing: Constant, Lasting Days Location: Is Diffuse Character Of Pain: Unable To Describe Associated Signs And Symptoms: Positive: Abdominal Pain, Other - Groin and leg pain. Negative: Fever Aggravating Factor(s): Nothing Alleviating Factor(s): Nothing Able to Bear Weight: Yes Related History: Other - hx DVT and Leiden Factor V - Allergies/Home Medications Allergies/Adverse Reactions: Allergies Allergy/AdvReac Type Severity Reaction Status Date / Time Sulfa (Sulfonamide Allergy Rash Verified 08/15/18 18:02 Antibiotics) CARDIAC STRESS TEST DYE Allergy CHEST Uncoded 08/15/18 18:02 PAIN,INCREASED HR PMH/Surg Hx/FS Hx/Imm Hx Previously Healthy: No Endocrine/Hematology History: Reports: Hx Thyroid Disease - hypothyroid, Other Endocrine/Hematological Disorders - Leiden Factor V positive, Denies: Hx Diabetes, Hx Anemia Cardiovascular History: Reports: Hx Deep Vein Thrombosis Denies: Hx Hypertension, Hx Pacemaker/ICD Respiratory History: Denies: Hx Asthma, Hx Bronchopulmonary Dysplasia, Hx Chronic Bronchitis, Hx Chronic Obstructive Pulmonary Disease (COPD), Hx Cystic Fibrosis, Hx Lung Cancer , Hx Pleural Effusion, Hx Pneumonia, Hx Pulmonary Edema, Hx Pulmonary Embolism, Hx Seasonal Allergies, Hx Sleep Apnea, Other Respiratory Problems/Disorders GI History: Denies: Hx Cirrhosis, Hx Crohn's Disease, Hx Diverticulosis, Hx Gall Bladder Disease, Hx Gastroesophageal Reflux Disease, Hx Gastrointestinal Bleed, Hx Hiatal Hernia, Hx Irritable Bowel, Hx Jaundice, Hx Obstructive Bowel, Hx Ileostomy, Hx Pyloric Stenosis, Hx Ulcer, Hx Urosepsis, Other GI Disorders History: Denies: Hx Renal Disease Musculoskeletal History: Denies: Hx Arthritis, Hx Rheumatoid Arthritis, Hx Back Problems, Hx Bursitis , Hx Congenital Bone Abnormalities, Hx Fibromyalgia, Hx Gout, Hx Orthopedic Injury, Hx Osteoporosis, Hx Scoliosis, Hx Tendonitis, Other Musculoskeletal History Sensory History: Denies: Hx Hearing Aid Neurological History: Denies: Hx CVA, Hx Dementia, Hx Developmental Delay, Hx Headaches, Hx Migraine, Hx Nerve Disease, Hx Peripheral Neuropathy, Hx Seizures, Hx Spinal Cord Injury, Hx Transient Ischemic Attacks (TIA), Other Neuro Impairments/ Disorders Psychiatric History: Denies: Hx Anxiety, Hx Attention Deficit Hyperactivity Disorder, Hx Autism, Hx Eating Disorder, Hx Oppositional [place] Disorder, Hx Depression, Hx Panic Disorder, Hx Post Traumatic Stress Disorder, Hx Inpatient Treatment, Hx Community Mental Health Tx, Hx Schizophrenia, Hx Bipolar Disorder, Hx Suicide Attempt, Hx of Violent Episodes Against Others, Hx Substance Abuse, Other Psychiatric Issues/Disorders - Cancer History Hx Chemotherapy: No Hx Radiation Therapy: No - Surgical History Surgery Procedure, Year, and Place: cholecystectomy, hysterectomy, x3 , RT VEIN ABLATION Infectious Disease History: No Infectious Disease History: Denies: Hx Hepatitis, Hx Human Immunodeficiency Virus (HIV), History Other Infectious Disease, Traveled Outside the [place] in Last 30 Days - Family History Known Family History: Positive: Hypertension Family History: FACTOR V LEIDEN, DVT - Social History Lives: With Family Alcohol Use: None Hx Substance Use: No Substance Use Type: Reports: None Hx Tobacco Use: No Smoking Status (MU): Never Smoked Tobacco Review of Systems Negative: Fever Positive: Chest Pain - heaviness Respiratory: Negative Positive: Abdominal Pain. Negative: Vomiting, Diarrhea, Nausea Positive: no symptoms reported Positive: Edema - legs - more in right than left., Other - positive: left groin pain near the pubis, leg pain Skin: Negative Neurological: Negative Psychological: Normal All Other Systems Reviewed And Are Negative: Yes Physical Exam - Summary Physical Exam Summary: Appearance: Well-appearing, moderate pain distress, well-nourished Skin: Warm, color reflects adequate perfusion, dry Head: Normal Head/Face inspection, atraumatic Eyes: Conjunctiva clear ENT: Normal inspection Neck: Supple, no nodes, no JVD Respiratory: Lungs clear, normal breath sounds, no respiratory distress Cardio: RRR, No murmur, pulses normal, brisk capillary refill Abdomen: Soft, minimal LLQ tenderness, no masses, no guarding, no rebound. No CVAT. Left groin with tenderness just lateral to pubis. No mass, no redness. Bowel sounds: Present Musculoskeletal: Strength Intact/ROM intact, no calf tenderness, bilateral pedal edema, right greater than left Psychological: Normal Neuro: Alert, muscle tone normal, no focal deficit Triage Information Reviewed: Yes Vital Signs On Initial Exam: Initial Vitals Temp Pulse Resp BP Pulse Ox 98.4 F 81 16 166/93 100 08/15/18 17:57 08/15/18 17:57 08/15/18 17:57 08/15/18 17:57 08/15/18 17:57 Vital Signs Reviewed: Yes Diagnostics - Vital Signs Vital Signs Temp Pulse Resp BP Pulse Ox 08/15/18 17:57 98.4 F 81 16 166/93 100 - Laboratory Lab Results: Lab Results 08/15/18 08/15/18 08/15/18 Range/Units 19:39 19:39 19:39 WBC 6.4 (3.5-10.8) 10^3/ul RBC 4.76 (4.00-5.40) 10^6/ul Hgb 14.1 (12.0-16.0) g/dl Hct 41 (35-47) % MCV 86 (80-97) fL MCH 30 (27-31) pg MCHC 34 (31-36) g/dl RDW 14 (10.5-15) % Plt Count 237 (150-450) 10^3/ul MPV 6.9 L (7.4-10.4) fL Neut % (Auto) 53.5 % Lymph % (Auto) 38.7 % Mcdonald % (Auto) 4.8 % Eos % (Auto) 1.8 % Baso % (Auto) 1.2 % Absolute Neuts (auto) 3.4 (1.5-7.7) 10^3/ul Absolute Lymphs (auto) 2.5 (1.0-4.8) 10^3/ul Absolute Monos (auto) 0.3 (0-0.8) 10^3/ul Absolute Eos (auto) 0.1 (0-0.6) 10^3/ul Absolute Basos (auto) 0.1 (0-0.2) 10^3/ul Absolute Nucleated RBC 0 10^3/ul Nucleated RBC % 0.1 INR (Anticoag Therapy) 0.86 (0.77-1.02) APTT 29.1 (26.0-36.3) seconds D-Dimer, Quantitative 206 (Less Than 230) ng/mL Lactic Acid 1.2 (0.5-2.0) mmol/L Result Diagrams: 08/15/18 19:39 08/15/18 19:37 Lab Statement: Any lab studies that have been ordered have been reviewed, and results considered in the medical decision making process. - Radiology CXR Radiology Interpretation Completed By: ED Physician Summary of Radiographic Findings: NAD. Pending official radiology report. - EKG 20:11 Cardiac Rate: NL - 72 bpm EKG Rhythm: Sinus Rhythm ST Segment: Non-Specific Ectopy: None EKG Comparison: No Significant Change - compared with 10/18/15 Summary of EKG Findings: An EKG at 20:11 reveals NSR at 72 bpm with nml AV/IV CT , nml QTc, and nml axis. Re-Evaluation - Re-Evaluation First Eval Re-Evaluation Time: 22:00 Change: Unchanged Comment: minimal LLQ pain and tenderness. No N,V. Leg pain and edema stable. Advised sign out to Dr. Serrano with US and CTA reports pending. Lower Extremity Course/Dx - Course Course Of Treatment: A 58 y/o female presents to [facility] with a chief complaint of right leg swelling since 08/07/18. Pt has hx DVT and is Leiden Factor V positive. Pt's d dimer is negative here, was positive in the [facility] office. Pt has a normal wbc count, nl BNP and normal lactic acid. Her CXR revealed NAD, unofficial. An EKG at 20:11 reveals NSR at 72 bpm with nml AV/ IV CT, nml QTc, and nml axis. In the ED course the patient was given Iohexol IV (contrast) for her CTA. She will be signed out to Dr. Serrano at shift change pending US and CTA chest/thorax. Dx: bilateral pedal edema, left groin pain, Leiden factor V. - Diagnoses Differential Diagnosis/HQI/PQRI: Positive: Cellulitis, DVT, Infection, Sprain, Strain, Other - PE Provider Diagnoses: Edema of both lower extremities, Left groin pain, Factor V Leiden Discharge - Sign-Out/Discharge Documenting (check all that apply): Sign-Out Patient Signing out patient TO: Marino Serrano - pending US and CTA chest at 22:00 - Discharge Plan Condition: Stable Referrals: Alex CLEMENT,Jaokb Means [Primary Care Provider] - - Billing Disposition and Condition Condition: STABLE - Attestation Statements Document Initiated by Scribe: Yes Documenting Scribe: Tim Jessica Provider For Whom Diego is Documenting (Include Credential): Dr. Tila Randolph MD Scribe Attestation: Tim Bloom scribed for Dr. Tila Randolph MD on 08/15/18 at 2226. Scribe Documentation Reviewed: Yes Provider Attestation: The documentation as recorded by the Tim apodaca accurately reflects the service I personally performed and the decisions made by me, Dr. Tila Randolph MD Status of Scribe Document: Viewed
[2018-08-15] MEDS ORDERED: Iodixanol* (CONTRAST) 320 MG/ML 100 ML SDV IV ONE (21:21)
--- NOTE | 2018-08-15 22:41 | ED ---
Progress - Progress Note Progress Note: RECEIVING SIGN-OUT FROM DR. JIMENEZ AT SHIFT CHANGE PENDING CTA AND U/S RESULTS. Pt is a 58 y/o F presenting to ED with c/o RLE edema onset 08/07/18. - Results/Orders Results/Orders: LE Venous Doppler US as read by radiologist: IMPRESSION: No evidence of DVT in the right or the left leg. ED provider has reviewed this report. Chest/Thorax CTA as read by radiologist: IMPRESSION: No evidence of PE or other acute chest pathology. ED provider has reviewed this report. Re-Evaluation - Re-Evaluation First Eval Re-Evaluation Time: 23:35 Change: Unchanged Comment: Discussing imaging results with pt and plans to discharge home. Course/Dx - Course Course Of Treatment: RECEIVING SIGN-OUT FROM DR. JIMENEZ AT SHIFT CHANGE PENDING CTA AND U/S RESULTS. Pt is a 58 y/o F presenting to ED with c/o RLE edema onset 08/07/18. Chest/Thorax CTA and LE Venous Doppler U/S were both unremarkable. Will D/C patient home. - Diagnoses Provider Diagnoses: Leg swelling Discharge - Sign-Out/Discharge Documenting (check all that apply): Patient Departure - D/C, Receiving Sign-Out Receiving patient FROM: Tila Jimenez - PENDING CTA, U/S - Discharge Plan Condition: Good Disposition: HOME Patient Education Materials: Leg Edema (ED) Referrals: Alex CLEMENT,Jakob Means [Primary Care Provider] - If Needed Additional Instructions: Your imaging studies tonight did not show any sign of clot in the legs or the lungs. - Billing Disposition and Condition Condition: GOOD Disposition: Home - Attestation Statements Document Initiated by Scribe: Yes Documenting Scribe: Dave Nails Provider For Whom Scribe is Documenting (Include Credential): Dr. Marino Serrano MD Scribe Attestation: Dave Bloom scribed for Dr. Marino Serrano MD on 08/16/18 at 0113. Scribe Documentation Reviewed: Yes Provider Attestation: The documentation as recorded by the Dave apodaca accurately reflects the service I personally performed and the decisions made by me, Dr. Marino Serrano MD Status of Scribe Document: Viewed
[2018-08-15 23:50] VITALS: BP 127/85
== END 2018-08-15 23:51 | disposition home or self-care (01) ==
LOC: ED 17:54
DX: R60.0 Localized edema (principal); R10.32 Left lower quadrant pain; D68.51 Activated protein C resistance; Z90.49 Acquired absence of other specified parts of digestive tract; Z90.710 Acquired absence of both cervix and uterus; Z88.2 Allergy status to sulfonamides
CPT/HCPCS: 36415; 71046; 71275; 80053; 82150; 82550; 82553; 83605; 83690; 83880; 84484; 85025; 85379; 85610; 85730; 86140; 93005; 93970; 99283; Q9967

== ENCOUNTER 2018-09-24 12:23 | Emergency (ER) | payer BC ==
--- OUTSIDE RECORDS SUMMARY | 2018-09-24 12:45 | XMS REPORT | Continuity of Care Document ---
:1960 External Reference #:[id number] Author Name Sarina Urbina Care Team Providers Name Role Phone Jakob Johnson MD Primary Care Physician Unavailable Payers Date Identification Numbers Payment Provider Subscriber Effective: 2015 Policy Number: [id number] [employer] Radha Grey PayID: [id number] [address] [address] KAYLYNN Smith [address] Effective: 2013 Policy Number: [id number] [place] Radha Grey Expires: 2015 Group Name: [facility] [address] PayID: [id number] [place] [address] Effective: 2011 Policy Number: [id number] [employer] Radha Grey Expires: 2013 PayID: [id number] [address] [address] KAYLYNN Smith [address] Advance Directives Description No Information Available Problems Date Description Provider Status Onset: 09/10/2013 Multiple joint pain Anand Johnson M.D. Active Onset: 09/10/2013 Lumbosacral spondylosis without Anand Johnson M.D. Active myelopathy Onset: 09/10/2013 Immunological Findings Nonspecified Anand Johnson M.D. Active Other & Unspecified Onset: 06/23/2015 Plain X-ray skull abnormal Juan Pablo Ghotra M.D. Active Onset: 10/23/2015 Shoulder joint pain Susan Gallardo MD Active Onset: 12/27/2017 Localized, primary osteoarthritis Ema Kay M.D. 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 ETOH Use Denies alcohol use Tobacco Use Start: Unknown Patient has never smoked Recreational Drug Use Denies Drug Use Smoking Status Reviewed: 09/19/18 Patient has never smoked Allergies, Adverse Reactions, Alerts Date Description Reaction Status Severity Comments 09/10/2013 Sulfa Antibiotics Urticaria Active 10/10/2016 IVP Dye Active 10/10/2016 Amoxicillin Contact dermatitis Active 10/10/2016 Trihydrate Active 10/10/2016 Clavulanate Active 10/10/2016 Adhesive Tape Active Medications Medication Date Status Form Strength Qnty SIG Indications Ordering Provider Levothyroxine Active Tablets 50mcg 90tab 1 po qd Unknown Sodium 00 s Aspir-81 Active Tablets 81mg [address] mouth every day Zoloft Active Tablets 25mg 1 by Unknown 00 mouth every day Lovenox 01/18/20 Hx Solution 40mg/0.4M 12ml sub every Ema 18 - L once a Rahul, 09/18/19 daily for M.D. 19 2 weeks Meloxicam 12/28/19 Hx Tablets 15mg 30tab 1 by M25.561 Ema 18 - s mouth Rahul, 01/17/20 every day M.D. 18 Diclofenac Sodium 11/10/19 Hx Gel 1% 200gm take 4gm M79.662 Deepak 18 - topically F 01/17/20 to Fina, 18 affected MD area 4 times per day as needed Diclofenac Sodium 09/10/19 Hx Tablets 75mg 60tab 1 tab by 719.49 Anand GARCIA 14 - DR s mouth Endo, 06/23/20 twice a M.D. 15 day Zoloft Hx Tablets 25mg 1 po qd Unknown 00 - 06/23/20 15 Hydrochlorothiazi Hx Tablets 25mg 30tab 1 po qd Unknown de 00 - s 06/23/20 15 Garcinia Cambogia Hx Tablets 500-200mg Unknown 00 - -mcg 06/23/20 15 Aspirin Low Hx Chewtabs 81mg 1 po qd Unknown Strength 00 - 06/23/20 15 Hydrochlorothiazi Hx Tablets 12.5mg 1 by Unknown de 00 - mouth 10/22/19 every day 16 Zyrtec Allergy Hx Tablets 10mg 1 by Unknown 00 - mouth 01/17/20 every day 18 Naprosyn Hx Tablets 500mg take 1 by Unknown 00 - mouth 01/17/20 twice a 18 day Maxalt Hx Tablets 5mg take 1 Unknown 00 - tablet Unknown once, may repeat at 2hr intervals ; do not exceed 30mg in 24 hrs. Medications Administered in Office Medication Date Status Form Strength Qnty SIG Indications Ordering Provider Depomedrol Administered Injection Ema 40MG Mu Kay M.D. Immunizations Description No Information Available Vital Signs Date Vital Result Comment 09/19/2018 9:07am Height 64 inches 5'4" Weight 187.00 lb Heart Rate 68 /min BP Systolic 120 mmHg BP Diastolic 70 mmHg Respiratory Rate 12 /min Pain Level 5 BMI (Body Mass Index) 32.1 kg/m2 01/17/2018 7:55am Height 64 inches 5'4" Weight 187.00 lb Heart Rate 76 /min BP Systolic 126 mmHg BP Diastolic 84 mmHg BMI (Body Mass Index) 32.1 kg/m2 12/27/2017 8:39am Height 64 inches 5'4" Heart Rate 86 /min BP Systolic 124 mmHg BP Diastolic 84 mmHg Respiratory Rate 20 /min Body Temperature 98.2 F Pain Level 10 11/09/2017 1:03pm Height 64 inches 5'4" Heart Rate 90 /min BP Systolic 124 mmHg BP Diastolic 82 mmHg Respiratory Rate 16 /min Body Temperature 98.1 F Pain Level 8 11/29/2016 1:16pm Height 64 inches 5'4" Weight 185.00 lb Heart Rate 72 /min BP Systolic 116 mmHg BP Diastolic 80 mmHg Respiratory Rate 16 /min Body Temperature 98.5 F BMI (Body Mass Index) 31.8 kg/m2 10/23/2015 4:20pm Height 64 inches 5'4" Weight 190.00 lb BP Systolic 118 mmHg BP Diastolic 78 mmHg BMI (Body Mass Index) 32.6 kg/m2 06/23/2015 9:54am Height 64 inches 5'4" Weight 194.00 lb Heart Rate 82 /min BP Systolic Sitting 140 mmHg BP Diastolic Sitting 90 mmHg Pain Level 0 BMI (Body Mass Index) 33.3 kg/m2 09/10/2013 2:33pm Weight 182.00 lb Heart Rate 66 /min BP Systolic Sitting 118 mmHg BP Diastolic Sitting 70 mmHg Results Test Date Facility Test Result H/L Range Note CBC Auto Diff 09/10/2013 White Blood Count 6.0 10^3/uL 4.8-10.8 Red Blood Count 4.78 10^6/uL 4.0-5.4 Hemoglobin 14.0 g/dL 12.0-16.0 Hematocrit 40 % 35-47 Mean Corpuscular Volume 84 fL 80-97 Mean Corpuscular Hemoglobin 29 pg 27-31 Mean Corpuscular HGB Conc 35 g/dL 31-36 Red Cell Distribution Width 14 % 10.5-15 Platelet Count 240 10^3/uL 150-450 Mean Platelet Volume 7 um3 Low 7.4-10.4 Abs Neutrophils 3.4 10^3/uL 1.5-7.7 Abs Lymphocytes 2.2 10^3/uL 1.0-4.8 Abs Monocytes 0.3 10^3/uL 0-0.8 Abs Eosinophils 0.1 10^3/uL 0-0.6 Abs Basophils 0 10^3/uL 0-0.2 Abs Nucleated RBC 0 10^3/uL Granulocyte % 56.2 % 38-83 Lymphocyte % 36.6 % 25-47 Monocyte % 4.8 % 1-9 Eosinophil % 1.7 % 0-6 Basophil % 0.7 % 0-2 Nucleated Red Blood Cells % 0.1 Comp Metabolic Panel 09/10/2013 Sodium 139 mmol/L 133-145 Potassium 3.5 mmol/L 3.5-5.0 Chloride 101 mmol/L 101-111 Co2 Carbon Dioxide 30.0 mmol/L 22-32 Anion Gap 8.0 mmol/L 2-11 Glucose 91 mg/dL 70-100 Blood Urea Nitrogen 16 mg/dL 6-24 Creatinine 0.80 mg/dL 0.50-1.40 BUN/Creatinine Ratio 20.0 8-20 Calcium 9.6 mg/dL 8.1-9.9 Total Protein 7.3 g/dL 6.2-8.1 Albumin 4.3 g/dL 3.6-5.4 Globulin 3.0 g/dL 2-4 Albumin/Globulin Ratio 1.4 1-3 Total Bilirubin 0.7 mg/dL 0.4-1.5 Alkaline Phosphatase 62 U/L 30-110 Alt 18 U/L 14-54 Ast 19 U/L 12-42 Egfr Non- 74.5 >60 Egfr 95.8 >60 1 Laboratory test 09/10/2013 C Reactive Protein 0.7 mg/dL High Less than 0.5 finding Erythrocyte Sed Rate 12 mm/Hr 0-30 Rachelle Screen Negative Negative 2 Jeaneth (Anti-Nuclear AB) Screen Negative Negative Hla B27 09/10/2013 Hla B27 Negative 3 Hla B27 Interp See Comment 4 Laboratory test finding 09/10/2013 Rheumatoid Factor <15 IU/mL <15 5 Cyclic Citrullinated Pept IgG <15.6 U 6 Lupus Anticoagulant AB 09/10/2013 Prothrombin Time(Lac) 10.3 sec 7 Lac Inr 0.9 Lac Aptt 31 sec 26 - 36 Lac DRVVT Screen Ratio 0.7 ratio 0.0 - 1.1 Lupus Anticoagulant Interpreta See Comment 8 Thyroid Autoantibodies 09/10/2013 Thyroglobulin Ab Scrn <20 IU/mL <116 9 Thyroperoxidase Ab 68.1 IU/mL Abnormal <9.0 Cardiolipin Igg,Igm,Iga AB 09/10/2013 Cardiolipin IgG <4.0 GPL 10 Cardiolipin IgM <4.0 MPL 11 Cardiolipin IgA <4.0 APL 12 Strep AB Anti Dnase B 09/10/2013 Anti Streptolysin O 258 IU/mL 0 - 530 Profile Antibody Anti-DNase B 354 U/mL Abnormal 0 - 300 13 1 Because ethnic data is not always readily available, this report includes an eGFR for both -Americans and non- Americans. The National Kidney Disease Education Program (NKDEP) does not endorse the use of the MDRD equation for patients that are not between the ages of 18 and 70, are , have extremes of body size, muscle mass, or nutritional status, or are non- or non-. According to the National Kidney Foundation, irrespective of diagnosis, the stage of the disease is based on the level of kidney function: Stage Description GFR(mL/min/1.73 m(2)) 1 Kidney damage with normal or decreased GFR 90 2 Kidney damage with mild decrease in GFR 60-89 3 Moderate decrease in GFR 30-59 4 Severe decrease in GFR 15-29 5 Kidney failure <15 (or dialysis) 2 The above RACHELLE screen is designed for the detection of antibodies to extractable nuclear antigen (RACHELLE) in human serum. It is a combination test for the detection of antibodies to INSURANCE ADVISER, Sm, SS-A (Ro), and SS-B (La) nuclear antigens. 3 -- REFERENCE VALUE -- Not Applicable 4 RESULT: HLA-B27 antigen was not detected. Method: Flow Cytometry Test Performed by: [place] [address] Director Government: Joe Joseph III, M.D. 5 Test Performed by: [place] [address] Director Government: Joe Joseph III, M.D. 6 -- REFERENCE VALUE -- <20.0 (Negative) Test Performed by: [place] [address] Director Government: Joe Joseph III, M.D. 7 -- REFERENCE VALUE -- 10.3 - 12.8 8 No evidence of a lupus-like anticoagulant based on results of Prothrombin Time (PT), Activated Partial Thromboplastin Time (APTT), and Dilute Russells Viper Venom Time (DRVVT). Interpretation not reviewed by physician. Test Performed by: [place] [address] Director Government: Joe Joseph III, M.D. 9 If thyroglobulin antibody measurement is performed to assess the reliability of the thyroglobulin assay for thyroid cancer patient follow-up, a thyroglobulin antibody result=/>22 IU/mL may result in falsely decreased thyroglobulin values. The thyroglobulin antibody testing method is an electrochemiluminescence assay manufactured by [employer] and performed on the Modular or Ulysses system. Values obtained from different assay methods or kits may be different and cannot be used interchangeably. Test Performed by: [place] [address] Director Government: Joe Joseph III, M.D. 10 -- REFERENCE VALUE -- <10.0 (Negative) 11 -- REFERENCE VALUE -- <10.0 (Negative) 12 -- REFERENCE VALUE -- <10.0 (Negative) Test Performed by: [place] [address] Director Government: Joe Joseph III, M.D. 13 Test Performed by: [facility], [place] [address] [place] [address] Director Government: Joe Joseph III, M.D. Procedures Date Code Description Status 09/19/2018 Inject/Drain Joint/Bursa Major W/O US Completed 09/06/2018 37372 ECHO Transthorasic Realtime 2D W Doppler & Color Flow Completed Hosp 12/27/201721474 Inject/Drain Joint/Bursa Major W/O US Completed 09/26/2016 70478269 Mammogram Completed 02/01/2016 49679 ECHO Transthorasic Realtime 2D W Doppler & Color Flow Completed Hosp Encounters Type Date Location Provider Dx Diagnosis Office Visit 01/17/2018 Orthopedic Ema Kay, M17.11 Unilateral primary 8:00a [facility] osteoarthritis, right knee M25.461 Effusion, right knee M25.561 Pain in right knee S83.241A Oth tear of medial meniscus, current injury, r knee, init Office Visit 12/27/2017 Orthopedic Ema M17.11 Unilateral primary 9:00a [facility] Kay osteoarthritis, right C.M.A. knee M25.461 Effusion, right knee M25.561 Pain in right knee Office Visit 11/09/2017 1:15p Orthopedic Deepak Feliciano M79.662 Pain in left [facility] Harden MD lower leg S86.892A Inj oth musc/tend at lower leg level, left leg, init Office Visit 11/29/2016 1:00p Surgical Michelle Abdelrahman N64.52 [facility] MD Office Visit 10/23/2015 3:40p Sports Medicine Fnu Paulina, M25.512 Pain in left Of Rena AT shoulder Jefferson S46.812D Strain of musc/fasc/tend at shldr/up arm, left arm, subs M75.82 Other shoulder lesions, left shoulder Office Visit 06/23/2015 Neurosurgery Juan Pablo Hardy R90.82 White matter 10:00a [facility] Ghotra M.D. disease, unspecified Office Visit 09/10/2013 Rheumatology Anand Johnson, 719.49 Pain Joint 3:00p [facility] Zhao Multiple Sites 721.3 Spondylosis Lumbar W/O Myelopathy 795.79 Immunological Findings Nonspec Other & Unspec Office Visit 08/23/2011 11:00a Neurosurgery Juan Pablo Hardy 721.3 Spondylosis [facility] Ghotra M.D. Lumbar W/O Myelopathy 847.2 Sprains & Strains Lumbar Plan of Treatment Future Appointment(s):10/09/2018 9:00 am - Hunter Ramirez DO FACC at [facility]09/19/2018 - Ema Kay M.D.M25.561 Pain in right kneeFollow up:Follow up: Call Dr. Kay's Aviation Tactical Readiness Officer, Fouzia, to schedule surgery.M25.562 Pain in left kneeM25.462 Effusion, left kneeM25.461 Effusion, right kneeM17.0 Bilateral primary osteoarthritis of knee
--- NOTE | 2018-09-24 14:21 | ED ---
Lower Extremity - HPI Summary HPI Summary: Patient is a 58-year-old female who presents emergency department for left knee pain. Patient states she is a history of osteoarthritis and sees Dr. Kay for orthopedics. She states last week she started having increased atraumatic knee pain and had cortisone injections bilaterally by Dr. Kay on Monday. They to the last several days with left knee has became more painful and today she is unable to bear any weight on left knee or strain left knee. Patient notes pain to her posterior knee that runs up into her thigh. She denies fever, chills, nausea, vomiting, redness. She is not diabetic. She does not history of factor V Leiden takes a baby aspirin daily. Symptoms are mild to moderate in severity. Walking makes symptoms worse. Nothing makes symptoms better. - History of Current Complaint Chief Complaint: EDExtremityLower Stated Complaint: LEFT KNEE PAIN Time Seen by Provider: 09/24/18 13:08 Hx Obtained From: Patient Pain Intensity: 6 - Allergies/Home Medications Allergies/Adverse Reactions: Allergies Allergy/AdvReac Type Severity Reaction Status Date / Time Sulfa (Sulfonamide Allergy Rash Verified 09/24/18 12:33 Antibiotics) CARDIAC STRESS TEST DYE Allergy CHEST Uncoded 08/20/18 07:36 PAIN,INCREASED HR PMH/Surg Hx/FS Hx/Imm Hx Previously Healthy: Yes Endocrine/Hematology History: Reports: Hx Thyroid Disease - hypothyroid, Other Endocrine/Hematological Disorders - Leiden Factor V positive, Denies: Hx Diabetes, Hx Anemia Cardiovascular History: Reports: Hx Deep Vein Thrombosis Denies: Hx Hypertension, Hx Pacemaker/ICD Respiratory History: Denies: Hx Asthma, Hx Bronchopulmonary Dysplasia, Hx Chronic Bronchitis, Hx Chronic Obstructive Pulmonary Disease (COPD), Hx Cystic Fibrosis, Hx Lung Cancer , Hx Pleural Effusion, Hx Pneumonia, Hx Pulmonary Edema, Hx Pulmonary Embolism, Hx Seasonal Allergies, Hx Sleep Apnea, Other Respiratory Problems/Disorders GI History: Denies: Hx Cirrhosis, Hx Crohn's Disease, Hx Diverticulosis, Hx Gall Bladder Disease, Hx Gastroesophageal Reflux Disease, Hx Gastrointestinal Bleed, Hx Hiatal Hernia, Hx Irritable Bowel, Hx Jaundice, Hx Obstructive Bowel, Hx Ileostomy, Hx Pyloric Stenosis, Hx Ulcer, Hx Urosepsis, Other GI Disorders History: Reports: Hx Renal Disease - abnormal gfr Denies: Hx Dialysis Musculoskeletal History: Denies: Hx Arthritis, Hx Rheumatoid Arthritis, Hx Back Problems, Hx Bursitis , Hx Congenital Bone Abnormalities, Hx Fibromyalgia, Hx Gout, Hx Orthopedic Injury, Hx Osteoporosis, Hx Scoliosis, Hx Tendonitis, Other Musculoskeletal History Sensory History: Denies: Hx Hearing Aid Neurological History: Denies: Hx CVA, Hx Dementia, Hx Developmental Delay, Hx Headaches, Hx Migraine, Hx Nerve Disease, Hx Peripheral Neuropathy, Hx Seizures, Hx Spinal Cord Injury, Hx Transient Ischemic Attacks (TIA), Other Neuro Impairments/ Disorders Psychiatric History: Denies: Hx Anxiety, Hx Attention Deficit Hyperactivity Disorder, Hx Autism, Hx Eating Disorder, Hx Oppositional Cooke Disorder, Hx Depression, Hx Panic Disorder, Hx Post Traumatic Stress Disorder, Hx Inpatient Treatment, Hx Community Mental Health Tx, Hx Schizophrenia, Hx Bipolar Disorder, Hx Suicide Attempt, Hx of Violent Episodes Against Others, Hx Substance Abuse, Other Psychiatric Issues/Disorders - Cancer History Hx Chemotherapy: No Hx Radiation Therapy: No - Surgical History Surgery Procedure, Year, and Place: cholecystectomy, hysterectomy,hernia repair , x3, RT VEIN ABLATION - Immunization History Date of Tetanus Vaccine: Unk Date of Influenza Vaccine: Fall 2014 Infectious Disease History: No Infectious Disease History: Denies: Hx Hepatitis, Hx Human Immunodeficiency Virus (HIV), History Other Infectious Disease, Traveled Outside the [place] in Last 30 Days - Family History Known Family History: Positive: Hypertension Family History: FACTOR V LEIDEN, DVT - Social History Occupation: Employed Full-time Lives: With Family Alcohol Use: None Hx Substance Use: No Substance Use Type: Reports: None Hx Tobacco Use: No Smoking Status (MU): Never Smoked Tobacco Review of Systems Constitutional: Negative Negative: Fever, Chills Cardiovascular: Negative Negative: Chest Pain Respiratory: Negative Negative: Shortness Of Breath Positive: Other - left kelechi pain Skin: Negative Negative: Rash Negative: Weakness, Paresthesia, Numbness All Other Systems Reviewed And Are Negative: Yes Physical Exam Triage Information Reviewed: Yes Vital Signs On Initial Exam: Initial Vitals Temp Pulse Resp BP Pulse Ox 98.7 F 69 16 149/96 98 09/24/18 12:30 09/24/18 12:30 09/24/18 12:30 09/24/18 12:30 09/24/18 12:30 Vital Signs Reviewed: Yes Appearance: Positive: Well-Appearing - Pt. sitting up in bed in NAD. Diagnostics - Vital Signs Vital Signs Temp Pulse Resp BP Pulse Ox 09/24/18 12:30 98.7 F 69 16 149/96 98 - Laboratory Result Diagrams: 09/24/18 14:28 09/24/18 14:28 Lab Statement: Any lab studies that have been ordered have been reviewed, and results considered in the medical decision making process. Lower Extremity Course/Dx - Course Course Of Treatment: Pt. presenting with significant increase in pain after steroid injection last week. Pt. is afebrile. No obvious overlying cellulitis on exam. Pt. does have signficiant pain to postior knee that extends into thigh , given hx will obtain venous duplex to r/o DVT. Basic labs ordered. U/S per radiology: SOFT TISSUES: Grossly normal. No large popliteal fossa cyst was identified. IMPRESSION: No sonographic evidence of deep vein thrombosis. Blood work unremarkable including normal CBC and CRP. 1300: I spoke with Dr. Kay who is concerned there could potentially be an infection from recent injection. Dr. Kay would like a stat MRI to evalutate for large effusion suggestive of infection. MRI will be around 1700 per radiology. Pt. will be signed out to Tses Zapata PA-C for MRI results and disposition. - Diagnoses Differential Diagnosis/HQI/PQRI: Positive: Arthritis, Bursitis, Contusion, Dislocation, DVT, Fracture (Closed), Infection, Sprain, Strain Provider Diagnoses: Knee pain, Lopez's cyst Discharge - Sign-Out/Discharge Documenting (check all that apply): Sign-Out Patient Signing out patient TO: Hermelinda Zapata - Discharge Plan Condition: Good Referrals: Alex CLEMENT,Jakob Means [Primary Care Provider] - - Billing Disposition and Condition Condition: GOOD
[2018-09-24 14:35] LABS: ABS Basophils 0 10^3/ul (0-0.2); ABS Eosinophils 0.1 10^3/ul (0-0.6); ABS Lymphocytes 1.9 10^3/ul (1.0-4.8); ABS Monocytes 0.3 10^3/ul (0-0.8); ABS Neutrophils 4.5 10^3/ul (1.5-7.7); ABS Nucleated RBC 0 10^3/ul; Eosinophil % 1.1 %; Hematocrit 43 % (35-47); Hemoglobin 14.7 g/dl (12.0-16.0); Lymphocyte % 27.9 %; Mean Corpuscular HGB Conc 34 g/dl (31-36); Mean Corpuscular Hemoglobin 29 pg (27-31); Mean Corpuscular Volume 86 fL (80-97); Mean Platelet Volume 7.1 fL (7.4-10.4); Nucleated Red Blood Cells % 0; Platelet Count 255 10^3/ul (150-450); Red Blood Count 4.98 10^6/ul (4.00-5.40); Red Cell Distribution Width 14 % (10.5-15); White Blood Count 6.8 10^3/ul (3.5-10.8)
[2018-09-24 14:52] LABS: BUN/Creatinine Ratio 22.9 (8-20); C Reactive Protein 1.39 mg/L (<8.01); Calcium 10.1 mg/dL (8.6-10.3); EGFR African American 103.3 (>60); EGFR Non-African American 85.4 (>60); Potassium 4.1 mmol/L (3.5-5.0)
[2018-09-24] MEDS ORDERED: HYDROcodone/ACETAMIN 5-325 MG* 1 TAB PO ONE (15:13)
[2018-09-24 16:26] LABS: Erythrocyte Sed Rate 11 mm/Hr (0-30)
--- NOTE | 2018-09-24 18:16 | ED ---
Progress - Progress Note Progress Note: patient signed out by Valente CORNELL pending MRI for dispo. resulted called to dr patel that is small joint effusion present reevaluation of present shows full ROM of joint. joint is not erythematous. neg ballotments. able to ambulate with knee immobilizer. Course/Dx - Course Course Of Treatment: Pt. presenting with significant increase in pain after steroid injection last week. Pt. is afebrile. No obvious overlying cellulitis on exam. Pt. does have signficiant pain to postior knee that extends into thigh , given hx will obtain venous duplex to r/o DVT. Basic labs ordered. U/S per radiology: SOFT TISSUES: Grossly normal. No large popliteal fossa cyst was identified. IMPRESSION: No sonographic evidence of deep vein thrombosis. Blood work unremarkable including normal CBC and CRP. 1300: I spoke with Dr. Kay who is concerned there could potentially be an infection from recent injection. Dr. Kay would like a stat MRI to evalutate for large effusion suggestive of infection. MRI will be around 1700 per radiology. Pt. will be signed out to Tess Zapata PA-C for MRI results and disposition. MRI shows small joint effusion. spoke with dr willard at 18:30 and said will results joint does not seem to be infected so can discharge with knee immbolizer and follow up. patient requesting naproxen for pain. patient understand and agrees with plan. - Diagnoses Provider Diagnoses: Knee pain, Lopez's cyst Discharge - Sign-Out/Discharge Documenting (check all that apply): Patient Departure, Sign-Out Patient Signing out patient TO: Valente Bustillo Patient Received Moderate/Deep Sedation with Procedure: No - Discharge Plan Condition: Good Disposition: HOME Prescriptions: Naproxen TAB* [Naprosyn 250 mg TAB*] 500 mg PO Q12H PRN #20 tab PRN Reason: Pain Patient Education Materials: Knee Pain (ED) Referrals: Ema Kay MD [Medical Doctor] - Alex CLEMENT,Jakob Means [Primary Care Provider] - Additional Instructions: Use immobilizer Ice, elevate, use naproxen every 12 hours as needed for pain, can use tyenlol every 6 hours in between Follow up with ortho Return to ED if develop or any new or worsening symptoms - Billing Disposition and Condition Condition: GOOD Disposition: Home
[2018-09-24 19:03] VITALS: BP 000/00
== END 2018-09-24 19:04 | disposition home or self-care (01) ==
LOC: ED 12:23
DX: M25.562 Pain in left knee (principal); M71.22 Synovial cyst of popliteal space [Baker], left knee; M79.89 Other specified soft tissue disorders; D68.51 Activated protein C resistance; Z79.82 Long term (current) use of aspirin; Z88.2 Allergy status to sulfonamides; Z91.041 Radiographic dye allergy status
CPT/HCPCS: 36415; 80048; 85025; 85652; 86140; 99282

== ENCOUNTER → 2019-06-21 14:30 | Inpatient (IN) | payer BC ==
--- NOTE | 2019-06-07 11:19 | HP ---
HISTORY AND PHYSICAL: DATE OF SURGERY: 06/20/19 DATE OF OFFICE VISIT: 06/07/19 SURGEON: Ema Kay MD * (DICTATED BY KRAIG AHUJA) PROCEDURE: Right total knee arthroplasty. CHIEF COMPLAINT: Right knee pain. HISTORY OF PRESENT ILLNESS: Ms. Grey is a 59-year-old female with severe end- stage osteoarthritis of the right knee. She has failed conservative treatment and elected to proceed with a right total knee arthroplasty. PAST MEDICAL HISTORY: Hypothyroidism and factor V Leiden disorder. PAST SURGICAL HISTORY: , cholecystectomy, hysterectomy, left total knee arthroplasty, breast biopsy and vein ablation of the right lower extremity. CURRENT MEDICATIONS: 1. Levothyroxine 50 mcg daily. 2. Tylenol as needed. 3. Furosemide 20 mg a day. ALLERGIES: To SULFA, IVP DYE, AMOXICILLIN, and ADHESIVE TAPE. FAMILY HISTORY: Coronary artery disease and factor V Leiden disorder. SOCIAL HISTORY: She is a 59-year-old female. She lives with her . She does not smoke or use drugs. Uses occasional alcohol. REVIEW OF SYSTEMS: A complete 14-point review of systems was reviewed with the patient. All negative and noncontributory. PHYSICAL EXAMINATION GENERAL: She is well developed, well nourished, in no acute distress. She is alert and oriented x3. Pleasant mood and appropriate affect. VITAL SIGNS: She stands 64 inches tall, weighs 192 pounds. Her blood pressure 122/88, heart rate 74. HEENT: Normocephalic, atraumatic. NECK: Supple. No palpable lymph nodes. PULMONARY: The lungs are clear to auscultation bilaterally. CARDIO: Regular rate and rhythm. ABDOMEN: Soft, nontender. MUSCULOSKELETAL: Right lower extremity, the skin is intact. There are no open wounds or abrasions. She walks with antalgic type gait favoring her right knee. There is a moderate effusion of the right knee. There is tenderness over the medial and lateral joint line. Range of motion is 10 to 120 degrees of flexion. Her calf is soft and nontender. She is able to dorsiflex and plantarflex. ASSESSMENT AND PLAN: Ms. Grey is a 59-year-old female with end-stage osteoarthritis of the right knee. She has failed conservative treatment and elected to proceed with a right total knee arthroplasty. The surgery is scheduled for 06/20/[address] Kay. The risk and benefits were discussed with the patient at today's visit. All of her questions were answered. She will follow up with Dr. Kay 2 weeks after the surgery. No TXA will be used on this patient. She does have a history of a blood clot in her right leg following the vein ablation surgery and she has factor V Leiden disorder. KRAIG AHUJA [id number]/[facility] #: [id number] MTDD
--- OUTSIDE RECORDS SUMMARY | 2019-06-20 10:47 | XMS REPORT | Continuity of Care Document ---
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 Onset: 09/10/2013 Lumbosacral spondylosis without myelopathy Anand Johnson M.D. Onset: 2013 Immunological Findings Nonspecified Other & Anand Johnson M.D. Onset: 2013 Unspecified Plain X-ray skull abnormal Juan Pablo Ghotra M.D. Onset: 06/23/2015 Shoulder joint pain Susan Gallardo MD Onset: 10/23/2015 Localized, primary osteoarthritis Ema Kay M.D. Onset: 12/27/2017 Arthroplasty of knee Ema Kay M.D. Onset: 12/17/2018 Social History Type Date Description Comments Sex Unknown ETOH Use Drinks Alcoholic Beverages Occasionally Tobacco Use Start: Unknown Patient has never smoked Recreational Drug Use Denies Drug Use Smoking Status Reviewed: 06/07/19 Patient has never smoked Exercise Type/Frequency Exercises sporadically housework Allergies, Adverse Reactions, Alerts Active Allergies Reaction Severity Comments Date Sulfa Antibiotics Urticaria 09/10/2013 IVP Dye 10/10/2016 Amoxicillin Contact dermatitis 10/10/2016 Adhesive Tape rash 10/10/2016 Medications Active Medications SIG Qnty Indications Ordering Provider Date Levothyroxine Sodium 1 po qd 90tabs Unknown 50mcg Tablets Acetaminophen 2 every 4 hours Unknown 325mg Tablets as needed for pain Furosemide Take 1 Tablet Unknown 20mg Tablets By Mouth Once Daily History Medications Methylprednisolone medrol dose 1units M54.32 Ema Kay, 04/29/2019 - 4mg TBPK pack - take as M.D. 06/06/2019 directed Meloxicam 1 by mouth 14tabs M25.562 Ema Kay, 04/19/2019 - 15mg Tablets every day M.D. 06/06/2019 Tramadol HCL take 1/2 tab 21tabs Ema Kay, 01/14/2019 - 50mg Tablets to1 tab every 8 M.D. 02/24/2019 hours as needed for pain Cyclobenzaprine HCL 1 tab po q8 30tabs Z96.652 Ema Kay, 12/17/2018 - 5mg Tablets hours prn mm M.D. 01/13/2019 spasms Medications Administered in Office Medication SIG Qnty Indications Ordering Provider Date Depomedrol 40MG Eam Kay M.D. 03/11/2019 Injection Depomedrol 40MG Ema Kay M.D. 11/26/2018 Injection Synvisc Or Synvisc-One Injection 1 Ema Kay M.D. 11/05/2018 MG Injection Synvisc Or Synvisc-One Injection 1 Ema Kay M.D. 10/29/2018 MG Injection Millyomedrol 40MG Ema Kay M.D. 09/19/2018 Injection Depomedrol 40MG Ema Kay M.D. 09/19/2018 Injection Depomedrol LESLIE Kay M.D. 12/27/2017 Injection Immunizations Description No Information Available Vital Signs Date Vital Result Comment 06/07/2019 9:44am Height 64 inches 5'4" Weight 192.00 lb Heart Rate 74 /min BP Systolic 122 mmHg BP Diastolic 88 mmHg Body Temperature 97.7 F BMI (Body Mass Index) 33.0 kg/m2 04/29/2019 1:31pm Height 64 inches 5'4" Weight 185.00 lb BP Systolic 140 mmHg BP Diastolic 96 mmHg Respiratory Rate 15 /min Body Temperature 98.3 F Pain Level 6 BMI (Body Mass Index) 31.8 kg/m2 Results Description No Information Available Procedures Date Code Description Status 03/11/2019 89461 Inject/Drain Joint/Bursa Major W/O US Completed 09/26/2016 69316048 Mammogram Completed Medical Devices Description No Information Available Encounters Type Date Location Provider Dx Diagnosis Office Visit 04/29/2019 [facility] at Ema Kay M.D. R53.1 Weakness 1:30p [place] M54.32 Sciatica, left side Z96.652 Presence of left artificial knee joint M25.562 Pain in left knee M17.11 Unilateral primary osteoarthritis, right knee M25.461 Effusion, right knee M25.561 Pain in right knee Office Visit 04/19/2019 10:15a [facility] Ema Kay, M25.562 Pain in left at [place] GeremiasDBlayne knee M25.462 Effusion, left knee Z96.652 Presence of left artificial knee joint Assessments Date Code Description Provider 06/07/2019 M17.11 Unilateral primary osteoarthritis, right knee KRAIG Lezama 06/07/2019 M25.561 Pain in right knee KRAIG Lezama 04/29/2019 R53.1 Weakness Ema Kay M.D. 04/29/2019 M54.32 Sciatica, left side Ema Kay M.D. 04/29/2019 Z96.652 Presence of left artificial knee joint Ema Kay M.D. 04/29/2019 M25.562 Pain in left knee Ema Kay M.D. 04/29/2019 M17.11 Unilateral primary osteoarthritis, right knee Ema Kay M.D. 04/29/2019 M25.461 Effusion, right knee Ema Kay M.D. 04/29/2019 M25.561 Pain in right knee Ema Kay M.D. 04/19/2019 M25.562 Pain in left knee Ema Kay M.D. 04/19/2019 M25.462 Effusion, left knee Ema Kay M.D. 04/19/2019 Z96.652 Presence of left artificial knee joint Ema Kay M.D. 03/11/2019 M25.561 Pain in right knee Ema Rahul, M.D. 03/11/2019 M25.461 Effusion, right knee Ema Rahul, M.D. 03/11/2019 M17.11 Unilateral primary osteoarthritis, right knee Ema Rahul , M.D. 02/25/2019 Z96.652 Presence of left artificial knee joint Ema Rahul, M.D. 02/25/2019 Z47.1 Aftercare following joint replacement surgery Ema Kay , M.D. 01/15/2019 M25.561 Pain in right knee Ema Rahul, M.D. 01/15/2019 M25.461 Effusion, right knee Ema Rahul, M.D. 01/15/2019 M17.11 Unilateral primary osteoarthritis, right knee Ema Rahul , M.D. 01/14/2019 M25.561 Pain in right knee Ema Rahul, M.D. 01/14/2019 Z47.1 Aftercare following joint replacement surgery Ema Kay , M.DBlayne 01/14/2019 M25.461 Effusion, right knee Ema Rahul, M.D. 01/14/2019 Z96.652 Presence of left artificial knee joint Ema Rahul, M.D. 01/14/2019 M17.11 Unilateral primary osteoarthritis, right knee Ema Rahul , M.D. 01/14/2019 M25.462 Effusion, left knee Ema Rahul, M.D. 12/17/2018 Z47.1 Aftercare following joint replacement surgery Alf Graf.DBlayne 12/17/2018 Z96.652 Presence of left artificial knee joint Ema Rahul, M.D. 12/17/2018 M25.462 Effusion, left knee Ema Rahul, M.D. 12/17/2018 M25.562 Pain in left knee Ema Rahul, M.D. 12/07/2018 Z47.1 Aftercare following joint replacement surgery ELIZABETH Hennessy 12/07/2018 Z96.652 Presence of left artificial knee joint IVONNE Hennessy Plan of Treatment Future Appointment(s):07/05/2019 8:45 am - Ema Kay M.D. at [facility] at Uokrkk1106/20/2019 12:00 pm - Bobby Phan PA-C at [facility] at Nqpznn4606/20/2019 12:00 pm - KRAIG Lezama at [facility] at Njxtrl6706/20/2019 12:00 pm - Ema Kay M.D. at [facility] at [place]/07/2019 - Lucero Wolff, PAM17.11 Unilateral primary osteoarthritis, right kneeFollow up:Follow up: 2 weeks after mgaytevP21.561 Pain in right kneeNew Xrays:Knee 3 Views RT, Ordered: 06/07/19 Functional Status Description No Information Available Mental Status Description No Information Available Referrals Description No Information Available
--- OUTSIDE RECORDS SUMMARY | 2019-06-20 10:47 | XMS REPORT | Continuity of Care Document ---
:1960 External Reference #:[id number] Author Name Ema Kay M.D. 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 directed Meloxicam 1 by mouth 14tabs M25.562 Ema Kay, 04/19/2019 15mg Tablets every day M.D. Levothyroxine Sodium 1 po qd 90tabs Unknown 50mcg Tablets Acetaminophen 2 every 4 hours Unknown 325mg Tablets as needed for pain Furosemide Take 1 Tablet Unknown 20mg Tablets By Mouth Once Daily History Medications Tramadol HCL take 1/2 tab 21tabs Ema Kay, 01/14/2019 - 50mg Tablets to1 tab every M.D. 02/24/2019 8 hours as needed for pain Cyclobenzaprine HCL 1 tab po q8 30tabs Z96.652 Ema Kay, 12/17/2018 - 5mg hours prn mm M.D. 01/13/2019 Tablets spasms Medications Administered in Office Medication SIG Qnty Indications Ordering Provider Date Depomedrol 40MG Ema Kay M.D. 03/11/2019 Injection Depomedrol 40MG Ema Kay M.D. 11/26/2018 Injection Synvisc Or Synvisc-One Injection 1 Ema Kay M.D. 11/05/2018 MG Injection Synvisc Or Synvisc-One Injection 1 Ema Kay M.D. 10/29/2018 MG Injection Depomedrol 40MG Ema Kay M.D. 09/19/2018 Injection Depomedrol 40MG Ema Kay M.D. 09/19/2018 Injection Depomedrol 40MG Ema Kay M.D. 12/27/2017 Injection Immunizations Description No Information Available Vital Signs Date Vital Result Comment 04/29/2019 1:31pm Height 64 inches 5'4" Weight 185.00 lb BP Systolic 140 mmHg BP Diastolic 96 mmHg Respiratory Rate 15 /min Body Temperature 98.3 F Pain Level 6 BMI (Body Mass Index) 31.8 kg/m2 04/19/2019 10:49am Height 64 inches 5'4" Heart Rate 60 /min BP Systolic 118 mmHg BP Diastolic 72 mmHg Respiratory Rate 18 /min Body Temperature 98.2 F Pain Level 0 Results Test Date Facility Test Result H/L Range Note CBC Auto 11/26/2018 White Blood 5.4 10^3/uL Normal 3.5-10.[address] [place] [address] [phone] Red Blood Count 4.82 10^6/uL Normal 3.70-4.87 Hemoglobin 14.4 g/dL Normal 12.0-16.0 Hematocrit 42 % High 33-41 Mean Corpuscular Volume 87 fL Normal 80-97 Mean Corpuscular Hemoglobin 30 pg Normal 27-31 Mean Corpuscular HGB Conc 35 g/dL Normal 31-36 Red Cell Distribution Width 14 % Normal 10.5-15 Platelet Count 268 10^3/uL Normal 150-450 Mean Platelet Volume 7.0 fL Low 7.4-10.4 Abs Neutrophils 3.6 10^3/uL Normal 1.5-7.7 Abs Lymphocytes 1.5 10^3/uL Normal 1.0-4.8 Abs Monocytes 0.2 10^3/uL Normal 0-0.8 Abs Eosinophils 0.1 10^3/uL Normal 0-0.6 Abs Basophils 0 10^3/uL Normal 0-0.2 Abs Nucleated RBC 0 10^3/uL Granulocyte % 66.5 % Lymphocyte % 27.7 % Monocyte % 4.1 % Eosinophil % 1.0 % Basophil % 0.7 % Nucleated Red Blood Cells % 0.1 Inr/Protime 11/26/2018 Inr 0.98 Normal 0.77-1.02 [address] [place] [address] [phone] Laboratory test 11/26/2018 Partial 31.3 Normal 26.0 -36.[address] [place] [address] [place] [address] Time PTT [phone] Urinalysis 11/26/2018 Urine Color Straw Profile [address] [place] [address] [phone] Urine Appearance Clear Urine Specific [place] 1.004 Low 1.010-1.030 Urine pH 7.0 Normal 5-9 Urine Urobilinogen Negative Negative Urine Ketones Negative Negative Urine Protein Negative Negative Urine Leukocytes Negative Negative Urine Blood Negative Negative Urine Nitrite Negative Negative Urine Bilirubin Negative Negative Urine Glucose Negative Negative Type & Screen 11/26/2018 Patient Blood Type AB Positive [address] [place] [address] [phone] Antibody Screen NEGATIVE Comp Metabolic 11/26/2018 Sodium 140 mmol/L Normal 135-145 Panel [address] [place] [address] [phone] Potassium 3.7 mmol/L Normal 3.5-5.0 Chloride 103 mmol/L Normal 101-111 Co2 Carbon Dioxide 28 mmol/L Normal 22-32 Anion Gap 9 mmol/L Normal 2-11 Glucose 95 mg/dL Normal 70-100 Blood Urea Nitrogen 9 mg/dL Normal 6-24 Creatinine 0.67 mg/dL Normal 0.51-0.95 BUN/Creatinine Ratio 13.4 Normal 8-20 Calcium 9.9 mg/dL Normal 8.6-10.3 Total Protein 7.2 g/dL Normal 6.4-8.9 Albumin 4.7 g/dL Normal 3.2-5.2 Globulin 2.5 g/dL Normal 2-4 Albumin/Globulin Ratio 1.9 Normal 1-3 Total Bilirubin 0.60 mg/dL Normal 0.2-1.0 Alkaline Phosphatase 62 U/L Normal 34-104 Alt 14 U/L Normal 7-52 Ast 15 U/L Normal 13-39 Egfr Non- 89.8 >60 Egfr 108.6 >60 1 Urine Culture And 11/26/2018 Urine Culture SEE RESULT 2 Sensitivities [address] [place] [address] [phone] 1 Because ethnic data is not always [...] 5 Kidney failure <15 (or dialysis) 2 SEE RESULT BELOW Name: RADHA MCKEON : [address]: Ema Kay MD Acct: [id number] Unit: [id number] AGE: 58 Location: PAT Re11/26/18 SEX: F Status: REG REF SPEC: [id number] MARLA: 11/26/18-[address] [facility] [address]: Ema Kay MD REQ: [id number] RECD: 11/26/18 STATUS: SHUBHAM HALE DR: Ruba Walker, HEAD LOFT WORKER Jakob Johnson MD _ SOURCE: URINE SPDESC: ORDERED: Urine Culture QUERIES: Urine Source: Clean Catch Procedure Result Reported Site Urine Culture Final 11/27/18- 1206 ML No growth of clinically significant organisms * ML - Main Lab . END OF REPORT DEPARTMENT OF PATHOLOGY, [address] [place] [address] Ru Stinson M.D. Director [facility] # [id number] Procedures Date Code Description Status 03/11/201987210 Inject/Drain Joint/Bursa Major W/O US Completed 12/06/2018 93279 TKR Total Knee Replacement Completed 12/06/2018 68372 TKR Total Knee Replacement Completed 11/26/2018 95577 Inject/Drain Joint/Bursa Major W/O US Completed 11/22/2018 66709 EKG Tracing & Interpretation Completed 11/05/201889785 Inject/Drain Joint/Bursa Major W/O US Completed 10/29/2018 38328 Inject/Drain Joint/Bursa Major W/O US Completed 09/26/2016 [id number] Mammogram Completed Medical Devices Description No Information Available Encounters Type Date Location Provider Dx Diagnosis Office Visit 11/22/2018 [facility] Hunter Parikh Z01.810 Encounter for 1:00p Of Rena Ramirez DO [facility] preprocedural cardiovascular examination Z86.718 Personal history of other venous thrombosis and embolism Assessments Date Code Description Provider 04/29/2019 R53.1 Weakness Ema Kay M.D. 04/29/2019 M54.32 Sciatica, left side Ema Kay M.D. 04/29/2019 Z96.652 Presence of left artificial knee joint Ema Kay M.D. 04/29/2019 M25.562 Pain in left knee Ema Kay M.D. 04/29/2019 M17.11 Unilateral primary osteoarthritis, right Ema Rahul, M.D. knee 04/29/2019 M25.461 Effusion, right knee Ema Rahul, M.D. 04/29/2019 M25.561 Pain in right knee Ema Rahul, M.D. 04/19/2019 M25.562 Pain in left knee Ema Rahul, M.D. 04/19/2019 M25.462 Effusion, left knee Ema Rahul, M.D. 04/19/2019 Z96.652 Presence of left artificial knee joint Ema Rahul, M.D. 03/11/2019 M25.561 Pain in right knee Ema Rahul, M.D. 03/11/2019 M25.461 Effusion, right knee Ema Rahul, M.D. 03/11/2019 M17.11 Unilateral primary osteoarthritis, right Emamacey Kay, M.DBlayne knee 02/25/2019 Z96.652 Presence of left artificial knee joint Ema Kay M.D. 02/25/2019 Z47.1 Aftercare following joint replacement Ema Kay M.D. surgery 01/15/2019 M25.561 Pain in right knee Ema Kay, Alf.D. 01/15/2019 M25.461 Effusion, right knee Ema Kay, M.D. 01/15/2019 M17.11 Unilateral primary osteoarthritis, right Ema Kay M.D. knee 01/14/2019 M25.561 Pain in right knee Emamacey Kay, MBlayneD. 01/14/2019 Z47.1 Aftercare following joint replacement Ema Kay M.D. surgery 01/14/2019 Z96.652 Presence of left artificial knee joint Geremias GrafDBlayne 01/14/2019 M25.461 Effusion, right knee Geremias GrafD. 01/14/2019 M17.11 Unilateral primary osteoarthritis, right Ema Kay M.D. knee 01/14/2019 M25.462 Effusion, left knee Geremias GrafD. 12/17/2018 Z47.1 Aftercare following joint replacement Ema Kay M.D. surgery 12/17/2018 Z96.652 Presence of left artificial knee joint Ema Kay M.D. 12/17/2018 M25.462 Effusion, left knee Geremias GrafD. 12/17/2018 M25.562 Pain in left knee Emamacey Kay, M.D. 12/07/2018 Z47.1 Aftercare following joint replacement Carrie Horn RPA-C surgery 12/07/2018 Z96.652 Presence of left artificial knee joint Carrie Horn RPA- C 12/06/2018 M17.12 Unilateral primary osteoarthritis, left Carrie Linarestr, ABBE- C knee 12/06/2018 M17.12 Unilateral primary osteoarthritis, left Ema Kay M.D. knee 11/26/2018 M25.462 Effusion, left knee Ema Kay M.D. 11/26/2018 M25.562 Pain in left knee lAf Graf.D. 11/26/2018 M17.0 Bilateral primary osteoarthritis of knee Ema Kay M.D. 11/22/2018 Z01.810 Encounter for preprocedural Hunter Ramirez DO [facility] cardiovascular examination 11/22/2018 Z86.718 Personal history of other venous Hunter Ramirez DO [facility] thrombosis and embolism 11/05/2018 M25.462 Effusion, left knee Geremias GrafDBlayne 11/05/2018 M25.562 Pain in left knee Alf Graf.DBlayne 11/05/2018 M17.0 Bilateral primary osteoarthritis of knee Ema Kay M.D. 10/29/2018 M25.462 Effusion, left knee Geremias GrafDBlayne 10/29/2018 M25.562 Pain in left knee Ema Kay M.DBlayne 10/29/2018 M17.0 Bilateral primary osteoarthritis of knee Ema Kay M.D. Plan of Treatment Future Appointment(s):05/03/2019 8:30 am [facility] 11:30 am - [facility]04/29/2019 - Ema Kay M.D.R53.1 WeaknessFollow up:Follow up: see pcp for byuxyovmB57.32 Sciatica, left sideNew Medication: Methylprednisolone 4 mg - medrol dose pack - take as mwywcomcW45.652 Presence of left artificial knee ytmvwL43.562 Pain in left kneeM17.11 Unilateral primary osteoarthritis, right kneeM25.461 Effusion, right kneeM25.561 Pain in right knee Functional Status Description No Information Available Mental Status Description No Information Available Referrals Description No Information Available
--- OUTSIDE RECORDS SUMMARY | 2019-06-20 10:47 | XMS REPORT | Summary of Care ---
:1960 Author Organization [facility] Address [address] [facility] [place] [address] Care Team Providers Name Role Phone Jakob Johnson MD Primary Care Provider Reason for Referral MRI/CAT/PET Scan (Routine) Status Reason Specialty Diagnoses / Procedures Referred By Contact Referred To Contact Closed Procedures Urban Mcaias VL LOWER EXTREMITY DUPLEX VEINS LEFT [address] [place] [address] Reason for Visit Reason Comments Leg Pain Encounter Details Date Type Department Care Team Description 04/29/2019 Emergency [facility] Emergency Department Urban Macias MD Emergency [address] [place] [address] [place] [address] Allergies Active Allergy Reactions Severity Noted Date Comments 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 hydrochlorothiazide (HCTZ, Take 12.5 mg 0 Active ORETIC) 12.5 MG Oral Tab by mouth DAILY. baclofen (LIORESAL) 10 MG Take 1 Tab by 60 Tab 1 09/02/2015 Active Oral TabIndications: Neck mouth THREE pain, Bilateral thoracic TIMES DAILY. back pain ibuprofen (MOTRIN) 600 MG Take 1 Tab by 28 Tab 0 04/29/2019 05/06/2019 Active Oral Tab mouth FOUR TIMES DAILY for 7 days. documented as of this encounter (statuses as of 04/30/2019) Active Problems Problem Noted Date Bilateral hand pain 07/14/2016 Right leg pain 09/11/2015 Thyroid activity decreased 05/28/2015 Joint pain 05/28/2015 Factor V deficiency 05/28/2015 Family hx-neurological disease 05/28/2015 Abnormal mammogram 05/28/2015 Toe pain, right 03/30/2015 documented as of this encounter (statuses as of 04/30/2019) Immunizations Name Administration Dates Next Due Influenza (IM) W/Pres 05/28/2015 Influenza Vaccine Whole 08/02/2013 documented as of this encounter Social History Tobacco Use Types Packs/Day Years Used Date Never Smoker Smokeless Tobacco: Never Used Alcohol Use Drinks/Week oz/Week Comments Yes 1 Glasses of wine 1.0 Sex Assigned at Date Recorded Not on file Job Start Date Occupation Industry Not on file Not on file Not on file Travel History Travel Start Travel End No recent travel history available. documented as of this encounter Last Filed Vital Signs Vital Sign Reading Time Taken Comments Blood Pressure 144/78 04/29/2019 6:04 AM EDT Pulse 72 04/29/2019 6:04 AM EDT Temperature 36.6 04/29/2019 4:38 AM EDT C (97.8 F) Respiratory Rate 16 04/29/2019 6:04 AM EDT Oxygen Saturation 99% 04/29/2019 6:04 AM EDT Inhaled Oxygen Concentration - - Weight 85.3 kg (188 lb) 04/29/2019 4:38 AM EDT Height 162.6 cm (5' 4") 04/29/2019 4:38 AM EDT Body Mass Index 32.27 04/29/2019 4:38 AM EDT documented in this encounter Discharge Instructions Urban Acosta MD - 04/29/2019Stop taking the meloxicam for the next week AttachmentsThe following attachments cannot be sent through Care Everywhere.LEG EDEMA (AFTERCARE(R) INSTRUCTIONS(ER/ED)) ([place]IAN)ACUTE LOW BACK PAIN (AFTERCARE (R) INSTRUCTIONS(ER/ED)) (MACEDONIAN)documented in this encounter Plan of Treatment Name Type Priority Associated Diagnoses Date/Time VL LOWER EXTREMITY Imaging Routine 04/29/2019 8:53 AM EDT DUPLEX VEINS LEFT Health Maintenance Due Date Last Done Comments DEPRESSION SCREENING 1970 HIV SCREENING 1973 HEPATITIS C SCREENING 1998 PAP SMEAR 11/06/2004 11/06/2001 ZOSTER IMMUNIZATION SERIES 2008 (1 of 2) MAMMOGRAM (SCREENING) 11/27/2015 11/26/2014, 09/19/2014, 09/18/2014, Additional history exists INFLUENZA VACCINE (#1) 2019 05/28/2015, 08/02/2013 COLONOSCOPY SCREENING 09/28/2019 09/28/2009, 09/28/2009 HPV IMMUNIZATION SERIES Aged Out No longer eligible based on patient's age to complete this topic MENINGOCOCCAL VACCINE IMM Aged Out No longer eligible based on patient's age to complete this topic PNEUMOCOCCAL 0-64 YRS Aged Out No longer eligible based on patient's age to complete this topic documented as of this encounter Procedures Procedure Name Priority Date/Time Associated Diagnosis Comments D DIMER STAT 04/29/2019 5:02 AM Results for this EDT procedure are in the results section. documented in this encounter Results D DIMER (04/29/2019 5:02 AM EDT) D Dimer 1.29 (H) <=0.50 UG/ML [facility] Comment: [facility] D-dimer values less than or equal to 0.50 ug/mL fibrinogen equivalent units ( FEU) may be used in conjunction with clinical pre-test probability to exclude deep vein thrombosis (DVT) and/or pulmonary emb olism (PE). Please note the change to the cutoff value effective 06/18/2018 to 0.50 FEU. Specimen Blood Performing Organization Address City/State/Zipcode Phone Number [facility] [address] [place] [address] documented in this encounter Visit Diagnoses Diagnosis Acute left-sided low back pain, with sciatica presence unspecified - Primary Leg edema, left Edema documented in this encounter Administered Medications Medication Order MAR Action Action Date Dose Rate Site enoxaparin (LOVENOX) Given 04/29/2019 5:52 AM 80 mg Abdominal Tissue injection 80 mg/0.8 mL 80 EDT mg 80 mg, Subcutaneous, NOW, 1 dose, Mon 16/19 at 0540 ibuprofen (MOTRIN) tablet 600 mg Given 04/29/2019 5:52 AM EDT 600 mg 600 mg, Oral, X1, 1 dose, First dose on Mon04/29/19 at 0645 lidocaine transdermal Patch applied 04/29/2019 5:52 AM 1 Patch Back - Lower patch (LIDODERM) EDT Left topical 5 % 1 Patch, Topical, X1, 1 dose, First dose on Mon04/29/19 at 0545 documented in this encounter Insurance Payer Benefit Plan / Subscriber ID Effective Dates Phone Address Type Group JOHAN HANDY xxxxxxxxxxxx 2017-Present Johan DRISCOLL PPO Guarantor Name Account Type Relation to Date of Phone Billing Patient Address Radha [place] Personal/Family 1960 [address] ([address]) [address] [phone] [place], [place] (Work) [id number] documented as of this encounter
--- NOTE | 2019-06-20 16:57 | OP ---
Operative Report - Blank - Operative Report Date of Operation: 06/20/19 Note: ADRIANA MCKEON 1960 Date of Surgery: 06/20/19 Ema Kay MD Analyst [employer]: Kati CORNELL did help throughout the procedure with preparation of the knee, wound retraction, manipulation of the knee, and wound closure. Anesthesiologist: Sarah Marroquin MD Anesthesia Type: Spinal Preoperative Diagnosis: Right severe degenerative osteoarthritis of the knee Postoperative Diagnosis: As above Procedure Performed: Right Total Knee Arthroplasty Tourniquet time: 39 minutes Complications: None Specimen: Bone and cartilage from the right knee joint sent to pathology. Hardware Used: Cemented Kumar [employer] Nephew total knee hardware was used - For the femur a size 5 right narrow oxinium legion posterior stabilized femoral component, for the tibia a size 3 right escobar II tibial baseplate, for the insert a size 11mm 3-4 posterior stabilized articular polyethylene insert, and for the patella a size 32 3-peg all poly patella. Brief History/Indication: ADRIANA MCKEON was known in clinic and had a history of severe right knee pain and swelling. She failed conservative treatment with anti-inflammatories, pain pills, intra-articular injections and physical therapy. She elected to undergo right total knee arthroplasty due to continued pain and decreased quality of life. Radiographs showed severe end stage osteoarthritis of the knee with bone on bone contact. Informed consent was obtained from the patient. She understood the risks of surgery included but were not limited to: bleeding, infection, damage to nearby structures, intraoperative fracture, nerve palsy, failure of the hardware, early loosening, knee stiffness or loss of motion, anesthesia complications, stroke, heart attack , blood clot and . She wished to proceed. Intra-Operative Findings: Intraoperatively the patient was noted to have severe loss of cartilage in all 3 compartments of the knee. Description of the Procedure: ADRIANA MCKEON was identified in the preanesthesia unit. Her right knee was marked as the correct operative side. Informed consent was signed and placed in the chart. The patient was taken to the operating room and placed under anesthesia without complication. A lucas catheter was placed. A tourniquet was placed on the right thigh. The right lower extremity was prepped and draped in the usual sterile fashion. Preoperative time-out was made to correctly identify the patient, side and site. Appropriate intraoperative antibiotics were given within one hour of incision. Tourniquet was inflated. A midline incision was made and carried sharply down to the extensor mechanism. A new 10 blade was used to make a standard medial parapatellar arthrotomy. The patella was subluxed laterally. Electrocautery was used to dissect soft tissue off the superomedial tibia to the midsagittal plane. The knee was flexed up. The anterior horn of the lateral meniscus and the ACL were sharply incised. A drill was used to enter the distal femur. The intramedullary distal femoral cutting guide was pinned on the distal femur. The oscillating saw was used to make the distal femoral cut. The external rotation guide was pinned on the distal femur and the distal femur was sized to a size 5. The size 5 multi-cutting jig was pinned on the distal femur. The oscillating saw was used to make the appropriate 4 chamfer cuts. Next the PCL was completely released. The extramedullary tibial cutting guide was pinned on the proximal tibia and the oscillating saw was used to make the proximal tibial cut perpendicular to the mechanical axis of the tibia. The bone was carefully removed. The knee was brought out into full extension. The spacer block was placed and had excellent fit with the knee in full extension. The medial and lateral ligaments were well balanced. The flexion and extension gaps were well balanced. The knee was flexed up. Lamina radiology manager was placed both medially and laterally. Any remaining meniscus was removed with electrocautery. Curved osteotome was used to remove any posterior osteophytes. The tibial tray and drop lakesha were placed and confirmed a satisfactory tibial cut. The size 5 right narrow femoral trial was impacted onto the distal femur. This trial had excellent fit and stability. The box for the posterior stabilized implant was prepared using a box cut osteotome and a reamer. Next a tibial tray trial and 9 mm insert trial was placed. The knee was taken through a range of motion and had full extension to 130 degrees of flexion. Patellofemoral tracking was satisfactory. The patella was inverted and sized to a size 32. Three peg holes were drilled through the size 32 drill guide. The trial patella was placed and the knee was taken through a range of motion. There was satisfactory patellofemoral tracking. All trials were removed. The tibia was subluxed anteriorly and sized to a size 3. The proximal tibial was prepared with a size 3 keel punch. All bony cut surfaces were irrigated with sterile saline and dried. Final implants were cemented into place starting with the tibia, followed by the femur, and last the patella. A 11 mm insert trial was placed and the knee was brought into full extension. Tourniquet was turned down and the knee was copiously irrigated with sterile saline. Electrocautery was used to obtain meticulous hemostasis. Once the cement had fully cured, the insert trial was removed. Any excess cement was removed from around the hardware and capsule. Final insert chosen was a 11 mm posterior stabilized Escobar II articular insert size 3-4. Stability of the insert was checked and noted to be stable. The extensor mechanism was closed using number 1 vicryls. The rest of the incision was closed in a layered fashion using 0 and 2-0 vicryls. The skin was closed using 3-0 nylon suture. Sterile xeroform, 4x4s and webril were used to cover the incision. Damian wrap and cold pack were used to cover the dressings. The patients anesthesia was reversed without difficulty. She was taken to the PACU in stable condition. Intended weight-bearing will be as tolerated.
[2019-06-20] MEDS: Lactated Ringers 1000 ML Bag* 1,000 ML IV SCH (17:32)
[2019-06-20] MEDS: oxyCODONE/Acetamin 5/325 MG* TAB PO PRN (19:24)
[2019-06-20] MEDS: Clindamycin 600 MG/D5W BAG(*) 600 MG/50 ML BAG IV SCH (21:45)
[2019-06-20] MEDS: Docusate CAP* 100 MG PO SCH (21:45)
[2019-06-20] MEDS: Magnesium Hydroxide LIQ* 30 ML UDC PO SCH (21:46)
[2019-06-20] MEDS: Acetaminophen TAB* 325 MG PO SCH (21:55)
[2019-06-21] MEDS: Lactated Ringers 1000 ML Bag* 1,000 ML IV SCH (04:11)
[2019-06-21] MEDS: oxyCODONE/Acetamin 5/325 MG* TAB PO PRN ×3 (04:14→12:09)
[2019-06-21 05:02] LABS: Hematocrit 34 % (35-47); Hemoglobin 11.5 g/dL (12.0-16.0); Mean Platelet Volume 7.2 fL (7.4-10.4); Platelet Count 206 10^3/uL (150-450)
[2019-06-21 05:14] LABS: BUN/Creatinine Ratio 12.9 (8-20); EGFR African American 118.4 (>60); EGFR Non-African American 97.9 (>60)
[2019-06-21] MEDS: Clindamycin 600 MG/D5W BAG(*) 600 MG/50 ML BAG IV SCH ×2 (06:33→13:30)
[2019-06-21] MEDS: Acetaminophen TAB* 325 MG PO SCH ×2 (06:33→13:37)
[2019-06-21] MEDS: Magnesium Hydroxide LIQ* 30 ML UDC PO SCH (08:13)
[2019-06-21] MEDS: Docusate CAP* 100 MG PO SCH (08:14)
--- NOTE | 2019-06-21 09:01 | PN ---
Progress Note - Progress Note Date of Service: 06/21/19 SOAP: Subjective: [Pt seen in bed this am. Resting comfortably. She states that she is ready to go home. Pain is well controlled. PT went very well this am. She denies any chest pain, SOB, nausea, vomiting. ] Objective: [General: Pt is alert and oriented x3. NAD. MSK, RLEL: Dressing is c/d/i. NVI distally. +df/pf. calf is soft and non tender. Dressing was changed today. Incision is c/d/i] Vital Signs Temp 97.4 F 06/21/19 07:46 Pulse 73 06/21/19 07:46 Resp 16 06/21/19 08:21 BP 115/63 06/21/19 07:46 Pulse Ox 98 06/21/19 08:02 Intake & Output 06/20/19 06/21/19 06/21/19 18:59 06:59 18:59 Intake Total 2400 3780 Output Total 2300 25 Balance 2400 1480 -25 Weight 190 lb Intake: IV Fluids 2400 980 LR 2400 980 Oral 2800 Output: Urine 25 Tenorio 2300 Assessment: [POD 1 RTKA ] Plan: [Continue with PT Continue with eliquis x30 days Pain management DC home today. Dressing change]
--- NOTE | 2019-06-21 09:28 | DS ---
Orthopedic Discharge Summary - Discharge Summary Date of Admission:06/20/19 Date of Discharge: 06/21/2019 Date of Surgery: 06/20/2019 Attending Orthopedic Provider: Dr. Kay Pre-operative Diagnosis: Right knee osteoarthritis Operative Procedure: Right total knee replacement Disposition of Patient: Home Condition of Patient: Good History: ADRIANA MCKEON is a 59 year old F with years of increasingly severe right knee pain. Patient has failed conservative management and has elected to undergo a right total knee replacement Hospital Course: ADRIANA was admitted to [facility] on 06/20/19. Patient underwent a right total knee replacement without complication followed by a brief recovery in PACU and transfer to the Short Stay Surgical Unit in stable condition. Our hospitalist service, physical therapy and occupational therapy also participated in this patients care. Post-op day 1: patient was alert and in no acute distress. Dressing was clean, dry and intact. Operative extremity dorsiflexion and plantarflexion intact, sensation intact to light touch distally, dressing was changed, incision was clean, dry and intact. Patient was deemed to be medically and orthopedically stable for discharge. Physical therapy goals were met. Home Medications Medication Instructions Recorded Confirmed Type Levothyroxine TAB* [Synthroid TAB*] 50 mcg PO QAM 12/11/17 06/07/19 History Acetaminophen [Tylenol Extra 2 tab PO ONCE PRN 11/26/18 06/07/19 History Strength] Furosemide TAB* [Lasix TAB*] 20 mg PO QAM 11/26/18 06/07/19 History Discharge Instructions following Orthopedic Surgery: Activity: * Weight Bearing as tolerated * Continue physical therapy and occupational therapy exercises as shown Wound care: * OK to shower on post-op day 3, no bathing, swimming, or submerging wound. * Use gentle soap, pat dry. Cover with gauze, GONZALO wrap or tape. * Visiting home nurse to do wound checks. Call Orthopedic office for: * Increased drainage * Redness * Increased pain * Fever Go to ER with shortness of breath or chest pain. Diet: * Regular diet * Increase fluids and fiber to prevent constipation. * Continue to use stool softeners, call office if no bowel motion within 48 hours. Medications See Home Medication List in your packet for medications that you should take after discharge. DVT Prophylaxis: Eliquis Dosin.5 mg, 1 tab every 12 hours x 30 days Pain Control: Percocet Dosin/325 mg 1-2 tabs by mouth every 4-6 hours as needed for pain. Maximum of 10 tabs per day. Please note that Percocet contains Tylenol (acetaminophen). Maximum daily dose of Tylenol is 4000 mg from all sources. Antibiotics are required prior to any dental work. FOLLOW UP: Follow up with [Rahul] Within 10-14 days, call for appointment Please call our office with any questions or concerns ([phone])
[2019-06-21 11:43] VITALS: BP 111/74
[~2019-06-21 14:30] MED LIST: Acetaminophen TAB* 325 MG PO PRN; Apixaban* 2.5 MG TAB PO SCH; Bisacodyl SUPP* 10 MG SUPP PR PRN; Buffered Lidocaine 1% SYRIN* 1 ML/SYRINGE INTRADERM ONE; Clindamycin 900 MG/D5W BAG(*) 900 MG/50 ML BAG IVPB ONE; Clindamycin CAP* 150 MG PO ONE; Cyclobenzaprine TAB* 10 MG PO PRN; Dexamethasone IV* 4 MG/ML 1 ML (4 MG) ONE; Famotidine IV* 10 MG/ML 2 ML (20 mg) IV ONE; Famotidine IV* 10 MG/ML 2 ML (20 mg) ONE; Furosemide TAB* 20 MG PO SCH; HYDROmorphone INJ1* 1 MG/ML SYRINGE IV PRN; KETAMINE HCL* 50 MG/ML 10 ML VIAL ONE; Ketorolac INJ* 30 MG/ML 1 ML VIAL ONE; Lactated Ringers 1000 ML Bag* 1,000 ML IV SCH; Levothyroxine TAB* 50 MCG TAB PO SCH; Lidocaine 1% MPF ** 5 ML VIAL ONE; Lidocaine 2% PF * 5 ML VIAL ONE; Magnesium Hydroxide LIQ* 30 ML UDC PO PRN; Midazolam* 1 MG/ML 2 ML VIAL (2 MG) ONE; Midazolam* 1 MG/ML 5 ML VIAL (5 MG) ONE; Morphine INJ* 2 MG/ML 1 ML SYRINGE (TWO MG - NEW SYRINGE VERSION) IV PRN; Naloxone* 0.4 MG/ML 1 ML VIAL IV PRN; Ondansetron INJ* 2 MG/ML VIAL IV PRN; Ondansetron INJ* 2 MG/ML VIAL ONE; Ondansetron ODT TAB* 4 MG PO PRN; Ondansetron TAB* 4 MG PO PRN; Polyethylene Glycol 3350* 17 GM PACKET PO PRN; Propofol* 10 MG/ML 20 ML BTL ONE; ROPIVACAINE 5 MG/ML 30 ML BTL (0.5%) ONE; Vitamin THERAPEUTIC TAB PO SCH; diPHENhydraMINE IV* 50 MG/ML 1 ml VIAL (BENADRYL) IV PRN; diPHENhydraMINE PO* 25 MG PO PRN; fentaNYL* 50 MCG/ML 2 ML VIAL (100 MCG VIAL) ONE; oxyCODONE TAB* 5 MG TAB PO PRN; traMADol TAB* 50 MG PO PRN
== END | disposition home health service (06) | DRG 302 ==
LOC: AA 06-20 10:42 → SSU 06-20 15:42
PROVIDERS: ADMIT Orthopaedic Surgery Adult Reconstructive Orthopaedic Surgery; ATTEND Orthopaedic Surgery Adult Reconstructive Orthopaedic Surgery
PROC: 0SRC069 Replacement of Right Knee Joint with Oxidized Zirconium on Polyethylene Synthetic Substitute, Cemented, Open Approach (ICD-10-PCS; principal; 2019-06-20 13:45)
DX: M17.11 Unilateral primary osteoarthritis, right knee (principal); D68.51 Activated protein C resistance; E03.9 Hypothyroidism, unspecified; M25.761 Osteophyte, right knee; Z79.1 Long term (current) use of non-steroidal anti-inflammatories (NSAID); Z79.899 Other long term (current) drug therapy; Z88.1 Allergy status to other antibiotic agents; Z91.041 Radiographic dye allergy status; Z88.2 Allergy status to sulfonamides; Z91.048 Other nonmedicinal substance allergy status; Z82.49 Family history of ischemic heart disease and other diseases of the circulatory system; Z86.718 Personal history of other venous thrombosis and embolism
CPT/HCPCS: 36415; 80048; 85014; 85018; 85049; 88305; 88311; A9270-GY; C1776; J1100; J1885; J2250; J2405; J2704; J2795; J3010